=== PATIENT | female | born 1970 | race Caucasian/White ===

== ENCOUNTER 2020-11-10 15:29 | Outpatient (CLI) | payer OTHER, BC, SELFPAY ==
--- NOTE | ~2020-11-10 | XR_ITS ---
XR sacrum coccyx min 2V DATE: 11/10/2020 16:00 INDICATION: Coccygeal pain for 4 months. No known injury. TECHNIQUE: AP, angled AP and lateral views of the sacrum and coccyx COMPARISON: None FINDINGS: No fracture or dislocation or bone destruction of the sacrum or coccyx. Normal alignment at the sacroiliac joints and pubic symphysis. IMPRESSION: Negative Reviewed, dictated and finalized at location A. IMPRESSION: Negative
== END 2020-11-10 15:30 | disposition home or self-care (01) ==
PROVIDERS: PCP Family Medicine; Visit Provider Family Medicine
DX: M53.3 Sacrococcygeal disorders, not elsewhere classified (principal)
CPT/HCPCS: 72220

== ENCOUNTER 2020-11-20 15:04 | Outpatient (RCR) | payer OTHER, BC, SELFPAY ==
--- NOTE | 2020-11-20 15:43 | PTOPEVAL ---
Thank you for referring Patricia Gil to [facility].? The patient is scheduled to be seen for therapy? ____x/week for ___ weeks. Please review, sign, date and return this plan of care ROGERS. I agree with and certify that the following plan of care is medically necessary. Referring Physician Date Admitting Provider: Attending Provider: Dennis Gonzalez, MD Referring Provider: *PT Outpatient Evaluation Start: 11/20/20 14:49 Freq: Status: Active Protocol: Document 11/20/20 14:50 ACR (Rec: 11/20/20 15:43 ACR [id number]) Therapy Assessment Status Assessment Status Assessment Status Evaluation Evaluation Information Problem Diagnosis Low back pain Onset 11/11/20 Subjective Information Patient states that she is Query Text:As Reported By Patient/ unsure what caused her pain. Family The patient states that sitting causes her a lot of pain and drives about an hour to work. She states she is has a lot of difficulty getting in and out of the car. Patient states that she occasionally has pain when she sits down. She states lifting her legs cause issues. Patient states the pain started a few months ago and it is getting worse. Some days are better than others, but when she has a bad day walking, stairs, standing , and sitting are all difficult. Patient states that her goal for therapy is to get in and out of the car easily and be able to sit without leaning one way or the other. 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
--- NOTE | 2020-12-25 14:43 | PTOPEVAL ---
Thank you for referring Patricia Gil to [facility].? The patient is scheduled to be seen for therapy? ____x/week for ___ weeks. Please review, sign, date and return this plan of care ROGERS. I agree with and certify that the following plan of care is medically necessary. Referring Physician Date Admitting Provider: Attending Provider: Dennis Gonzalez, MD Referring Provider: *PT Outpatient Evaluation Start: 11/20/20 14:49 Freq: Status: Active Protocol: Document 12/25/20 13:48 ACR (Rec: 12/25/20 14:43 ACR [id number]) Therapy Assessment Status Assessment Status Assessment Status Discharge Evaluation Information Problem Diagnosis LBP Onset 11/11/20 Subjective Information Patient states that since Query Text:As Reported By Patient/ beginning therapy she is feel Family great. She no longer has difficulty gettiing in and out of her car, sitting for a period of time, lifting her legs, walking, stairs, and standing. She states she would like to be discharged and she does her HEP daily. Pain Assessment Timing of Pain Assessment Timing of Pain Assessment Assessment Pain Scale Pain Scale Used Numeric (1 - 10) Self Report Pain Assessment Lower Back Reported Pain Level 0 Greatest Pain Intensity 0 Pain Score Pain Score 0: Self Report Lower Extremity Muscle Strength Testing Hip Strength Right Hip Flexion Strength 5 Normal Left Hip Flexion Strength 5 Normal Knee Strength Right Knee Flexion Strength 5 Normal Knee Extension Strength 5 Normal Left Knee Flexion Strength 5 Normal Knee Extension Strength 5 Normal Muscle Length Testing Muscle Length Testing Piriformis w/Hip Flexion <90 Degrees (R) WFL,(L) WFL Left Hamstring Length 10 Query Text:(90 - 90 Position) Right Hamstring Length 10 Query Text:(90 - 90 Position) General Exercise General Exercises Exercise Description - review over Les's Rudy Query Text:Record Sets, Reps, x 30 minutes Resistance, and Position - ambulation x 10 minutes ( 2500') - nustep level 5, 10 minutes - passive stretching of B hamstrings x 5 minutes PT Clinical Summary Clinical Summary Protocol: PTEVCODE PT Clinical Summary Patient is a 50 year old female that has participated 9 visits f
== END 2020-12-25 14:57 | disposition home or self-care (01) ==
LOC: CHSPT 15:04
PROVIDERS: Visit Provider Family Medicine
DX: M53.3 Sacrococcygeal disorders, not elsewhere classified (principal)
CPT/HCPCS: 97014; 97110; 97140; 97161; 97530; G0283

== ENCOUNTER 2022-08-24 09:02 | Observation (INO) | payer OTHER, BC, SELFPAY ==
[2022-08-24] VITALS (9 sets, daily range): BP systolic 117–140; BP diastolic 72–88; PULSE 87–105; RESP 13–19; TEMP 37–37.1; O2SAT 91–99; BMI 29.1
--- NOTE | ~2022-08-24 | CT_ITS ---
EXAMINATION: CT abdomen pelvis wo con DATE: 08/24/2022 09:52 INDICATION: Low abdominal pain. TECHNIQUE: Computed tomography (CT) of the abdomen and pelvis was performed without intravenous contr ast. Automated exposure control and iterative reconstruction technique were employed. The dose-length product was 521.21 mGy-cm. COMPARISON: None. FINDINGS: The visualized portions of the lung bases demonstrate mild atelectasis. There is a 5 mm par t solid nodule in right lower lobe, likely benign. No pleural effusion. The heart size is normal. No pericardial effusion. The liver and gallbladder are normal. There is a 15 mm low-attenuation lesion i n the spleen, most likely a cyst or granulomatous disease. The pancreas, adrenal glands, and kidneys are normal. There is no urolithiasis. There are scattered diverticula in the colon. There is fat stra nding around a diverticulum of the sigmoid colon with local bowel wall thickening and punctate foci o f extraluminal gas, consistent with diverticulitis. There are no dilated loops of bowel. The appendix is normal. There is an umbilical hernia containing fat. There are no pathologically enlarged lymph n odes. There is no free intraperitoneal fluid. There is mild thoracic and lumbar spondylosis. IMPRESSION: 1. Acute sigmoid diverticulitis with microperforation. No abscess. Reviewed, dictated and finalized at location A.
[2022-08-24] MEDS: LACTATED RINGERS 1,000 ML 999 ML IV CONT (09:45)
[2022-08-24 09:52] LABS: Basophils Percent Auto 0.2 % (0.2-1.2); Eosinophils Percent Auto 0.3 % (0-4.4); Hemoglobin 13.5 g/dL (12.0-15.0); Immature Granulocyte Absolute 0.03 K/mm3 (0.00-0.031); Immature Granulocyte Percent A 0.2 % (0-0.5); Lymphocytes Absolute Auto 1.26 K/mm3 (0.9-3.2); Lymphocytes Percent Auto 9.4 % (18.3-44.2); Mean Corpuscular HGB Conc 33.8 g/dl (32-36); Mean Corpuscular Hemoglobin 31.9 pg (26-34); Mean Corpuscular Volume 94.6 fl (80-100); Monocytes Absolute Auto 0.9 K/mm3 (0.1-0.6); Monocytes Percent Auto 6.6 % (2.6-8.5); Neutrophils Absolute Auto 11.1 K/mm3 (1.3-6.7); Neutrophils Percent Auto 83.3 % (45.5-73.1); Platelet Count Result 310 k/mm3 (150-375); Red Blood Count 4.23 M/mm3 (4.2-5.4); White Blood Count 13.4 K/mm3 (4.5-10.0)
[2022-08-24 09:57] LABS: Alanine Aminotransferase 22 U/L (6-35); Albumin Level 4.5 g/dL (3.5-5.1); Alkaline Phosphatase 120 U/L (38-126); Anion Gap 8 mmol/L (8-16); Aspartate Amino Transferase 23 U/L (14-36); Blood Urea Nitrogen 11 mg/dL (7-17); Calcium 9.6 mg/dL (8.4-10.2); Carbon Dioxide 25 mmol/L (22-30); Chloride 106 mmol/L (98-107); Estimated CRCL calculation 88 ml/min; Estimated Glomerular Filt Rate > 60; Glucose 116 mg/dL (65-110); Lipase 32 U/L (23-300); Sodium 139 mmol/L (137-145)
[2022-08-24] MEDS: PIPERACILLN/TAZ 3.375GM/NS50ML 3.375 GM/50 ML BAG IVPB ×3 (10:36→22:42)
[2022-08-24 10:58] LABS: Appearance Urine Cloudy (Clear); Bacteria Urine Rare /hpf; Bilirubin Urine Negative (Negative); Blood Urine Negative (Negative); Color Urine Yellow (Yellow); Glucose Urine UA Negative (Negative); Ketones Urine Negative (Negative); Leukocyte Esterase Ur 1+ LEU/UL (Negative); Nitrate Urine Negative (Negative); Non Pathogenic Casts 0-2; Protein Urine Negative (Negative); RBC Urine 0-2 /hpf (0-2); Specific Grav Ur 1.009 (1.001-1.035); Squamous Epithelial Cell Urine Few /hpf (Few); Urobilinogen Urine 0.2 mg/dL (<2.0)
[2022-08-24 11:12] LABS: Add Urine Microscopic? YES
--- NOTE | 2022-08-24 11:14 | ED.ABDPAIN ---
HPI - Abdominal Pain General Chief Complaint: Abdominal Pain Stated Complaint: lower abdominal pain with diarrhea Time Seen by Provider: 08/24/22 09:10 History of Present Illness HPI narrative: Patient states that since last night, she has been having waves of pain in her lower abdomen, along with some nausea and diarrhea. Endorses some chills, she is concerned that she may have diverticulitis, no prior history of this but she has multiple family members with it. No dysuria. Related Data Allergies Allergy/AdvReac Type Severity Reaction Status Date / Time iohexol Allergy Hives Verified 08/24/22 09:03 [From contrast - CT, X-RAY] prednisone Allergy Nausea and Verified 08/24/22 09:04 Vomiting Sulfa (Sulfonamide Allergy Nausea Verified 08/24/22 09:03 Antibiotics) Review of Systems Review of Systems: CONST: No fever. HEENT: No sore throat C/V: No chest pain RESP: No cough GI: Reports abdominal pain, nausea, diarrhea : No dysuria. M/S: No joint pain. SKIN: No rash. NEURO: [No headache or focal numbness or weakness] PSYCH: [No depression] Exam Narrative: EXAMINATION OF ORGAN SYSTEMS/BODY AREAS: Constitutional: Vital signs per nursing GENERAL:[No acute distress, non-toxic appearing.] HEAD: Normal with no signs of head trauma. EYES: EOMI, conjunctiva normal ENT: Hearing grossly intact LUNGS: Nonlabored breathing. HEART: [Regular rate and rhythm] ABD: [Soft], some tenderness palpation to the lower abdomen EXT: Normal range of motion SKIN: [No rashes or lesions.] NEURO: [Alert and oriented x 3. No gross focal sensory or strength deficits.] PSYCH: Normal affect Course Vital Signs Vital signs: Vital Signs Temperature 98.7 F 08/24/22 09:04 Pulse Rate 101 H 08/24/22 09:04 Respiratory Rate 14 08/24/22 09:04 Blood Pressure 127/75 08/24/22 09:04 Pulse Oximetry 97 08/24/22 09:04 Oxygen Delivery Room Air 08/24/22 09:04 Temperature 98.7 F 08/24/22 09:04 Pulse Rate 92 08/24/22 10:15 Respiratory Rate 18 08/24/22 10:15 Blood Pressure 140/88 08/24/22 10:15 Pulse Oximetry 97 08/24/22 10:15 Oxygen Delivery Room Air 08/24/22 09:04 MDM - Abdominal Pain MDM Narrative Medical decision making narrative: Electronic medical record was reviewed. Patient presented to the ED with complaint of [abdominal pain and diarrhea]. Vitals [were within acceptable limits]. Physical exam revealed lower abdominal tenderness. Based on the patient's history and physical exam, my differential includes but is not limited to [gastritis, gastroenteritis, diverticulitis, appendicitis]. [IV access was established by nursing staff]. Patient declines any pain medication at this time. CBC, BMP, lipase, LFTs, bilirubin and alk phos were obtained. Labs were pertinent for leukocytosis to 13.4. UA with 6-10 WBCs and some leukocyte esterase. [Decision was made to obtain a CT-abdomen to evaluate for acute abdominal process. CT-abdomen per radiology interpretation is significant for diverticulitis with microperforation.] I did start the patient on Zosyn at this time, along with IV fluids and made her n.p.o. I did discuss this case with the general surgeon, who agrees to admit the patient under his service. Findings discussed with the patient and plan for admission and she is agreeable with this. Lab Data 08/24/22 09:38 08/24/22 09:38 Labs: Lab Results 08/24/22 08/24/22 Range/Units 09:38 10:49 WBC 13.4 H (4.5-10.0) K/mm3 RBC 4.23 (4.2-5.4) M/mm3 Hgb 13.5 (12.0-15.0) g/dL Hct 40.0 (37.0-47.0) % MCV 94.6 (80-100) fl MCH 31.9 (26-34) pg MCHC 33.8 (32-36) g/dl RDW 12.0 (11.5-14.5) % Plt Count 310 (150-375) k/mm3 MPV 11.0 H (7.4-10.4) fl Immature Gran % (Auto) 0.2 (0-0.5) % Neut % (Auto) 83.3 H (45.5-73.1) % Lymph % (Auto) 9.4 L (18.3-44.2) % [place] % (Auto) 6.6 (2.6-8.5) % Eos % (Auto) 0.3 (0-4.4)
--- NOTE | 2022-08-24 12:01 | PM.IMHP ---
H&P: HPI History of Present Illness Date/Time: 08/24/22 12:01 Chief Complaint: Lower abdominal pain Narrative: This is a 52-year-old woman who presented to the ER today with complaints of mid lower abdominal pain x 3 days. She began having some mid lower abdominal pain on Monday that was initially mild. The pain was aggravated by movement/bending and when she would move her bowels. She does report over the weekend having some hard small stools. Her abdominal pain was constant and progressively became worse. She denies any nausea, vomiting, fever, or chills. Yesterday, she began to notice loose mucous-like stools and her pain became much more severe overnight. She decided to come into the ER today for evaluation due to her worsening pain overnight. In the ER, her labs were significant for a WBC count of 13,400. CT scan of the abdomen and pelvis showed acute sigmoid diverticulitis with microperforation, no abscess. She is being admitted to our service in this setting. She is seen in the ER and has been started on IV Zosyn and IV fluids. She has not required any pain medication in the ER and states her abdominal pain is actually better this morning compared to the pain she was having at home last night. No other complaints at this time. Denies a history of diverticulitis. Reports having a colonoscopy in [place] 3 years ago that was normal. No previous abdominal surgeries. Review of Systems Review of Systems: All systems reviewed & are unremarkable except as noted in HPI and below Constitutional: Constitutional: Reports no additional constitutional complaints, Denies chills, Denies fatigue and Denies fever(s) Eyes: Eyes: Reports no additional eye complaints ENT: Reports system reviewed and no additional complaints, except as documented and Denies dizziness Cardiovascular: Cardiovascular: Reports no additional cardiovascular complaints, Denies chest pain and Denies leg edema Respiratory: Respiratory: Reports no additional respiratory complaints, Denies cough and Denies dyspnea Gastrointestinal: Gastrointestinal: Reports as per HPI, Reports no additional gastrointestinal complaints, Reports abdominal pain, Denies melena, Denies hematochezia, Reports change in stool character, Reports loose stools, Denies nausea and Denies vomiting Genitourinary: Genitourinary: Reports no additional female genitourinary complaints and Denies dysuria Musculoskeletal: Musculoskeletal: Reports no additional musculoskeletal complaints, Denies abnormal gait and Denies joint swelling Integumentary/Breasts: Skin/Breast: Reports system reviewed and no additional complaints, except as docu Neurologic: Reports system reviewed and no additional complaints, except as documented, Denies headache(s), Denies focal weakness, Denies numbness and Denies tingling PMFSH Past Medical History Medical History Vitamin D deficiency Surgical History Surgical History History of colonoscopy History of lumpectomy of left breast Benign History of tonsillectomy Family History Family History Mother Diverticulitis Social History Social History Smoking status: Never smoker Drinks per week: 2 Substance use: never Lack of Transportation: No Lack of Food: Sometimes True Current Housing: I Have Housing Concerned About Future Housing: No Difficulty Paying Gas/Electric Bills: No Difficulty Paying for Meds: No Currently Unemployed: No Education: Associate Degree Difficulty w/ Childcare or Family Care: No Spiritual care concerns: No Meds Home Medications and Allergies Allergies Allergy/AdvReac Type Severity Reaction Status Date / Time iohexol Allergy Hives Verified 08/24/22 09:03 [From contrast - CT, X-RAY] prednisone Allerg
--- NOTE | 2022-08-24 12:07 | ADMGEN ---
This patient, Patricia Gil, was admitted to Medical Room 251-01. Patient/family oriented to hospital policies and general routines including ID bracelet, bed and alarms, visiting hours, pain management, procedures, bathroom and other care routines, personal items, smoking policy, room service/diet, and visiting hours. Information on how to activate the Rapid Response Team has been discussed. Patient/Family are encouraged to report perceived risks to care and to ask questions if they do not understand what they are told or what they should do.
[2022-08-24] MEDS: SODIUM CHLORIDE 0.9% IV 1,000 ML 125 ML IV CONT ×2 (13:44→22:42)
[2022-08-25] MEDS: PIPERACILLN/TAZ 3.375GM/NS50ML 3.375 GM/50 ML BAG IVPB ×4 (04:11→23:20)
[2022-08-25 05:06] VITALS: BP 119/72; PULSE 77; RESP 14; TEMP 36.6; O2SAT 98
[2022-08-25 05:58] LABS: Basophils Percent Auto 0.3 % (0.2-1.2); Eosinophils Absolute Auto 0.1 K/mm3 (0-0.3); Eosinophils Percent Auto 1.2 % (0-4.4); Hematocrit 35.9 % (37.0-47.0); Hemoglobin 11.8 g/dL (12.0-15.0); Immature Granulocyte Absolute 0.02 K/mm3 (0.00-0.031); Immature Granulocyte Percent A 0.2 % (0-0.5); Lymphocytes Absolute Auto 1.61 K/mm3 (0.9-3.2); Lymphocytes Percent Auto 17.8 % (18.3-44.2); Mean Corpuscular HGB Conc 32.9 g/dl (32-36); Mean Corpuscular Volume 97.3 fl (80-100); Mean Platelet Volume 10.6 fl (7.4-10.4); Monocytes Absolute Auto 0.7 K/mm3 (0.1-0.6); Monocytes Percent Auto 7.3 % (2.6-8.5); Neutrophils Absolute Auto 6.6 K/mm3 (1.3-6.7); Neutrophils Percent Auto 73.2 % (45.5-73.1); Platelet Count Result 247 k/mm3 (150-375); Red Blood Count 3.69 M/mm3 (4.2-5.4); Red Cell Distribution Width 12.1 % (11.5-14.5); White Blood Count 9.1 K/mm3 (4.5-10.0)
[2022-08-25 06:13] LABS: Anion Gap 4 mmol/L (8-16); Blood Urea Nitrogen 9 mg/dL (7-17); Calcium 8.8 mg/dL (8.4-10.2); Carbon Dioxide 28 mmol/L (22-30); Chloride 109 mmol/L (98-107); Estimated CRCL calculation 79 ml/min; Estimated Glomerular Filt Rate > 60; Glucose 93 mg/dL (65-110); Potassium 3.5 mmol/L (3.4-5.0); Sodium 141 mmol/L (137-145)
[2022-08-25 08:23] VITALS: PULSE 75; O2SAT 95
[2022-08-25] MEDS: PANTOPRAZOLE SODIUM IV 40 MG VIAL IV PUSH (08:51)
[2022-08-25] MEDS: SODIUM CHLORIDE 0.9% IV 1,000 ML 125 ML IV CONT (09:00)
--- NOTE | 2022-08-25 10:59 | PM.PNGS ---
Progress Note: A&P Assessment and Plan (1) Diverticulitis of intestine with perforation without abscess: Qualifiers: Diverticulitis site: large intestine Diverticulitis bleeding: unspecified bleeding status Qualified Code(s): K57.20 - Diverticulitis of large intestine with perforation and abscess without bleeding Code(s): K57.80 - Diverticulitis of intestine, part unspecified, with perforation and abscess without bleeding Status: Acute Assessment and Plan: Abdominal pain and tenderness improved. WBC down to normal. Will start clear liquids and advance to fulls later today if doing well. Consult the dietitian for education on low vs high fiber diet. Continue IV Zosyn. Will repeat labs tomorrow. Plan I have discussed the patient's case and plan of care with Dr. Sandhu. Subjective Subjective Date/Time Seen: 08/25/22 10:19 Patient reports: feels better, pain is less, flatus, bowel movement and afebrile Review of Systems Review of Systems: All systems reviewed & are unremarkable except as noted in HPI and below Constitutional: Constitutional: Reports no additional constitutional complaints, Denies fever(s), Denies poor appetite and Denies weakness Gastrointestinal: Gastrointestinal: Reports no additional gastrointestinal complaints, Denies constipation, Denies diarrhea, Reports loose stools (loose BM this morning, small), Denies nausea and Denies vomiting Exam Const: General: comfortable and no acute distress Orientation/consciousness: patient oriented x3 Resp: Effort & Inspection: no respiratory distress Auscultation: clear to auscultation bilaterally Cardio: Rate: regular rate Rhythm: regular rhythm GI: Inspection: non-distended GI Palp: Yes Soft to palpation, Yes Tenderness to palpation present (GI) (improved tenderness in the mid to left lower abdomen), No Guarding due to palpation present (GI) and No Rebound tenderness present Auscultation: normal bowel sounds Extrem: General: no edema Psych: Mental Status: mental status grossly normal Insight: Good insight present (Psych) Objective Data Vital Signs Vital Signs: Vital Signs - 24 hr 08/24/22 11:30 08/24/22 12:13 08/24/22 19:37 Temperature 98.6 F 98.6 F Pulse Rate 88 92 91 Respiratory Rate 15 16 14 Blood Pressure 128/79 137/79 136/74 Pulse Oximetry 99 99 97 Oxygen Delivery 08/24/22 20:00 08/25/22 05:06 08/25/22 08:23 Temperature 97.8 F Pulse Rate 77 75 Respiratory Rate 14 Blood Pressure 119/72 Pulse Oximetry 98 95 Oxygen Delivery Room Air Room Air 08/25/22 08:00 Temperature Pulse Rate Respiratory Rate Blood Pressure Pulse Oximetry Oxygen Delivery Room Air Intake/Output Intake/Output: Intake & Output 08/22/22 08/23/22 08/24/22 08/25/22 23:59 23:59 23:59 23:59 Intake Total 2360 1170 Balance 2360 1170 Meds/Results Medications: Active Medications Generic Name Dose Route Start Last Admin Trade Name Freq PRN Reason Stop Dose Admin Piperacillin/Tazobactam/Dextrose 3.375 gm in 50 mls @ 100 mls/hr 08/24/22 17:00 08/25/22 10:33 Zosyn 3.375 Gm/Ns 50 Ml IVPB 100 mls/hr Q6H CARMELITA Administration Sodium Chloride 1,000 mls @ 125 mls/hr 08/24/22 13:20 08/25/22 09:00 Normal Saline Iv IV CONT 125 mls/hr .Q8H CARMELITA Administration Acetaminophen 1,000 mg in 100 mls @ 400 mls/hr 08/24/22 13:17 08/25/22 04:28 Ofirmev 1,000 Mg Ivpb IVPB 08/25/22 13:16 Infused Q6H PRN Infusion Pain Rated 4-6 Morphine Sulfate 2 mg 08/24/22 13:17 Morphine Sulfate (*Crx) 2 Mg/Ml Inj IV PUSH Q2H PRN Pain Rated 7-10 Ondansetron HCl 4 mg 08/24/22 10:39 Ondansetron Inj 4 Mg/2 Ml Vial IV PUSH Q4H PRN Nausea Pantoprazole Sodium 40 mg 08/25/22 09:00 08/25/22 08:51 Pantoprazole Sodium Iv 40 Mg Vial IV PUSH 40 mg QAM CARMELITA Administration Radiology Results: ITS Impressions Abdomen/Pelvis CT 08/24/22 09:56 IMPRESSION: 1. Acute si
[2022-08-25 14:00] VITALS: BP 129/71; PULSE 67; RESP 15; TEMP 36.7; O2SAT 99
[2022-08-25 20:20] VITALS: BP 111/74; PULSE 73; RESP 16; TEMP 36.6; O2SAT 98
[2022-08-25] MEDS: ACETAMINOPHEN 325 MG TABLET 650 MG PO (23:19)
[2022-08-26 04:52] VITALS: BP 128/76; PULSE 72; RESP 14; TEMP 36.7; O2SAT 97
[2022-08-26] MEDS: PIPERACILLN/TAZ 3.375GM/NS50ML 3.375 GM/50 ML BAG IVPB (05:24)
[2022-08-26 06:07] LABS: Hematocrit 35.7 % (37.0-47.0); Hemoglobin 11.8 g/dL (12.0-15.0); Mean Corpuscular HGB Conc 33.1 g/dl (32-36); Mean Corpuscular Hemoglobin 31.8 pg (26-34); Mean Corpuscular Volume 96.2 fl (80-100); Mean Platelet Volume 10.4 fl (7.4-10.4); Platelet Count Result 269 k/mm3 (150-375); Red Blood Count 3.71 M/mm3 (4.2-5.4); Red Cell Distribution Width 11.9 % (11.5-14.5)
[2022-08-26 06:20] LABS: Anion Gap 4 mmol/L (8-16); Blood Urea Nitrogen 8 mg/dL (7-17); Calcium 9.3 mg/dL (8.4-10.2); Carbon Dioxide 29 mmol/L (22-30); Chloride 108 mmol/L (98-107); Estimated CRCL calculation 79 ml/min; Estimated Glomerular Filt Rate > 60; Glucose 95 mg/dL (65-110); Potassium 3.7 mmol/L (3.4-5.0); Sodium 141 mmol/L (137-145)
[2022-08-26] MEDS: PANTOPRAZOLE SODIUM IV 40 MG VIAL IV PUSH (09:13)
[2022-08-26 14:00] VITALS: BP 117/71; PULSE 78; RESP 18; TEMP 36.7; O2SAT 99
--- NOTE | 2022-08-26 14:26 | PCDIET ---
Brief nutrition note: Pt asked for clarification on nutrition education from yesterday. Wanted to know if she can take vitamins whole. Told her probably fine but check with doctor if any questions. Chrissy Cao RD LDN
--- NOTE | 2022-08-26 14:56 | PM.DS ---
DS: Admitting Diagnosis Discharge Date August 26, 2022 Admitting Diagnosis Acute sigmoid diverticulitis with micro perforation DS: Discharge Diagnosis Discharge Diagnosis (1) Diverticulitis of intestine with perforation without abscess: Qualifiers: Diverticulitis site: large intestine Diverticulitis bleeding: unspecified bleeding status Qualified Code(s): K57.20 - Diverticulitis of large intestine with perforation and abscess without bleeding Code(s): K57.80 - Diverticulitis of intestine, part unspecified, with perforation and abscess without bleeding Status: Acute DS: Summary Hospital Course Hospital Course: the patient experienced severe left lower quadrant abdominal pain lasting about 24hours. She presented to the emergency room where she had a mildly elevated white blood count [address]160. CT scan abdomen pelvis showed evidence of a mild sigmoid diverticulitis with small microperforation. No periappendiceal abscess was seen. She had not had previous episodes of diverticulitis status colonoscopy about 3 years ago which was normal. She was admitted to the hospital and started on IV antibiotics include Zosyn. Pain quickly improved and she was then started on clear liquids. Was then advanced to full liquids later today and then to a low-fiber diet the next day. Abdominal exam was relatively benign. Only needed Tylenol for any pain relief. On the day of discharge she had only minimal 1/10 pain upon palpation of the left lower quadrant. her white blood count was normal and she had been afebrile for over 24hours. She was tolerating a low-fiber diet she was discharged home on hospital day 2. She is to continue on a course of oral antibiotics at home for the next 10 days. She is to follow up to see me in the office in about 2 weeks. Status at Discharge Functional status at discharge: independent ambulation Overall status at discharge: patient is back to baseline Time Spent with Patient Time attestation: Total time spent providing and/or coordinating discharge services: Time spent: Less than 30 minutes Exam Const: General: comfortable and no acute distress Neck: Neck: supple and no JVD Resp: Effort & Inspection: normal respiratory effort Auscultation: clear to auscultation bilaterally Cardio: Rate: regular rate Rhythm: regular rhythm GI: Other: Abdomen is soft and nondistended. Minimal tenderness to deep palpation in the left lower quadrant. No guarding or rebound tenderness is noted. Neuro: General: gait normal Motor exam (neuro): 5/5 motor strength present throughout Sensory Exam: normal sensation Psych: Mental Status: mental status grossly normal Affect: normal affect DS: Data Data Completed and Pending Labs on day of discharge: Labs from last 24 hours 08/26/22 06:01 WBC 9.0 RBC 3.71 L Hgb 11.8 L Hct 35.7 L MCV 96.2 MCH 31.8 MCHC 33.1 RDW 11.9 Plt Count 269 MPV 10.4 Sodium 141 Potassium 3.7 Chloride 108 H Carbon Dioxide 29 Anion Gap 4 L BUN 8 Creatinine 0.80 Estim Creat Clear Calc 79 Estimated GFR > 60 Glucose 95 Calcium 9.3 Discharge Plan Discharge Attending physician on discharge: Mitchel Sandhu Discharging Clinician: Mitchel Sandhu Anticipated Discharge Date/Time: 08/26/22 14:53 Patient Disposition: Home, Self-Care Activity: unlimited Diet: low fiber Discharge Instructions: May discharge home when stable. Follow up to see Dr. Sandhu the office in 2 weeks. Patient to call [phone] for an appointment. Stay on a low-fat diet for 2 weeks and then switch to a high-fiber diet. No activity restrictions and may return to work when she feels like it. Patient Instructions: Antibiotic Form Stand Alone Forms: General Discharge Information Follow-up/Referrals: Mitchel Sandhu MD [Physician] - Discharge Medications: New amoxicillin-pot clavulanate [Augmentin] 500-125 mg tablet 1 tablet PO Q8H Qty: 3
== END 2022-08-26 15:48 | disposition home or self-care (01) ==
LOC: ANHED 11:38 → ANH2MED 11:42
PROVIDERS: Nurse Practitioner Family; Admitting Provider Surgery; Emergency Provider Emergency Medicine; PCP Family Medicine; Visit Provider Surgery
DX: K57.20 Diverticulitis of large intestine with perforation and abscess without bleeding (principal); D72.829 Elevated white blood cell count, unspecified; E55.9 Vitamin D deficiency, unspecified
CPT/HCPCS: 36415; 74176; 80048; 80053; 81001; 83690; 85025; 85027; 87086; 96361; 96365; 96367; 96375; 96376; 99285; A9270; C9113; G0378; J0131; J2543; J7030; J7120

== ENCOUNTER 2022-11-07 11:19 | Day surgery (SDC) | payer OTHER, BC, SELFPAY ==
[2022-10-10 09:02] VITALS: BMI 28.4
[2022-10-21 11:27] VITALS: BMI 27.6
--- NOTE | 2022-11-04 15:05 | WPDANESEPPF ---
Anes - Initial Pre Proc Eval Procedure: Operation Date: 11/07/22 13:30 Proposed Procedures p Esophagogastroduodenoscopy - Golden Lambert MD s Diagnostic Colonoscopy - Golden Lambert MD Date/Time: 11/04/22 15:05 Surgeon: Golden Lambert MD Pre Op Diagnosis: Diverticulitis w/Perforation & ABS., Epigastric PN Patient Data Age: 52 Gender: F Height: 1.7 m Weight: 80 kg Allergies Allergy/AdvReac Type Severity Reaction Status Date / Time iohexol Allergy Hives Verified 11/07/22 12:30 [From contrast - CT, X-RAY] prednisone Allergy Nausea and Verified 11/07/22 12:30 Vomiting Sulfa (Sulfonamide Allergy Nausea Verified 11/07/22 12:30 Antibiotics) Home Medications Medication Instructions Recorded Confirmed Type cholecalciferol (vitamin D3) 10 10 mcg PO DAILY 09/14/22 11/07/22 History mcg (400 unit) capsule omega-3 fatty acids 1,000 mg 1,000 mg PO DAILY 09/14/22 11/07/22 History capsule lactobacillus combination no.9 4 4,000 mmu cells PO DAILY 10/04/22 11/07/22 History billion cell capsule (Adult 50 Plus Probiotic) Patient hx anesthesia problems: none Family hx anesthesia problems: none Results Review: All pre-operative results and documents have been reviewed as part of the pre-operative evaluation. [facility] Past Medical History Medical History (Updated 11/04/22 @ 15:06 by Jonathan Woodson MD) Diverticulitis Overweight (BMI 25.0-29.9) Vitamin D deficiency Surgical History Surgical History History of colonoscopy History of lumpectomy of left breast Benign History of tonsillectomy Family History Family History Mother Diverticulitis Social History Social History Smoking status: Never smoker Alcohol intake: never Drinks per week: 2 Substance use: never Substance use type: does not use Lack of Transportation: No Lack of Food: Sometimes True Current Housing: I Have Housing Concerned About Future Housing: No Difficulty Paying Gas/Electric Bills: No Difficulty Paying for Meds: No Currently Unemployed: No Education: Associate Degree Difficulty w/ Childcare or Family Care: No Living arrangements: with family Spiritual care concerns: No Anes - Eval Final PreProcedure Day of Procedure 11/04/22 15:05 Patient weight: overweight Heart: regular rate and rhythm Lungs: clear to auscultation and normal air movement Airway: Mallampati scale class II Neurological: alert and oriented Last oral intake: >/= 8 hours ASA classification: II Emergent: no Anesthetic plan: proceed Anesthesia type and monitoring: general GIVS Results Review: All pre-operative results and documents have been reviewed as part of the pre-operative evaluation. Informed Consent: The patient's anesthetic plan and its attendant risks and benefits were discussed with the patient/family/POA. Questions were solicited and answers provided to the satisfaction of the patient/family/POA.
[2022-11-07 12:39] VITALS: BP 127/81; PULSE 74; RESP 16; TEMP 36.8; O2SAT 98
[2022-11-07] MEDS: LACTATED RINGERS 1,000 ML 150 ML IV CONT (12:51)
--- NOTE | 2022-11-07 12:55 | PM.HPGS ---
History of Present Illness History of Present Illness Consent: Risks, benefits, and alternatives have been discussed and questions answered. Patient agrees to proceed with procedure. Chief complaint: Diverticulitis , Epigastric pain Narrative: Patricia Gil is a 52 year old female presents for both colonoscopy and EGD. Patient states she was hospitalized with diverticulitis 2 months ago. Treated with antibiotics. She no longer has discomfort. Her bowel habits have returned to normal. She presents for colonoscopy to ensure resolution of her diverticulitis. Additionally patient notes that after her diverticulitis episode she developed substernal warm sensation with the eating. She is referred for EGD to evaluate this. She has not tried antacids nor any specific therapy for this. She denies any dysphagia. She has had no weight loss. Review of Systems Review of Systems: Review of systems noncontributory. [facility] Past Medical History Medical History (Updated 11/07/22 @ 12:57 by Golden Lambert MD) Diverticulitis Overweight (BMI 25.0-29.9) Vitamin D deficiency Surgical History Surgical History History of colonoscopy History of lumpectomy of left breast Benign History of tonsillectomy Family History Family History Mother Diverticulitis Social History Social History Smoking status: Never smoker Alcohol intake: never Drinks per week: 2 Substance use: never Substance use type: does not use Lack of Transportation: No Lack of Food: Sometimes True Current Housing: I Have Housing Concerned About Future Housing: No Difficulty Paying Gas/Electric Bills: No Difficulty Paying for Meds: No Currently Unemployed: No Education: Associate Degree Difficulty w/ Childcare or Family Care: No Living arrangements: with family Spiritual care concerns: No Meds Home Medications and Allergies Home Medications Medication Instructions Recorded Confirmed Type cholecalciferol (vitamin D3) 10 10 mcg PO DAILY 09/14/22 11/07/22 History mcg (400 unit) capsule omega-3 fatty acids 1,000 mg 1,000 mg PO DAILY 09/14/22 11/07/22 History capsule lactobacillus combination no.9 4 4,000 mmu cells PO DAILY 10/04/22 11/07/22 History billion cell capsule (Adult 50 Plus Probiotic) Allergies Allergy/AdvReac Type Severity Reaction Status Date / Time iohexol Allergy Hives Verified 11/07/22 12:30 [From contrast - CT, X-RAY] prednisone Allergy Nausea and Verified 11/07/22 12:30 Vomiting Sulfa (Sulfonamide Allergy Nausea Verified 11/07/22 12:30 Antibiotics) Vital Signs Vital Signs - 24 hr 11/07/22 12:39 Temperature 98.2 F Pulse Rate 74 Respiratory Rate 16 Blood Pressure 127/81 Pulse Oximetry 98 Oxygen Delivery Room Air Exam Narrative: Physical exam reveals patient to be alert. Vital signs stable. HEENT exam is unremarkable. Patient is anicteric. Lungs are clear. Heart without murmur. Abdomen bowel sounds present soft nontender with no organomegaly. Digital external rectal exam is normal. Assessment and Plan Assessment and plan (1) Diverticulitis of intestine with perforation without abscess: Qualifiers: Diverticulitis site: large intestine Diverticulitis bleeding: unspecified bleeding status Qualified Code(s): K57.20 - Diverticulitis of large intestine with perforation and abscess without bleeding Code(s): K57.80 - Diverticulitis of intestine, part unspecified, with perforation and abscess without bleeding Status: Acute Assessment and Plan: The patient has a history of diverticulitis 8 weeks ago which she states symptoms have improved. She did receive a course of antibiotics. Plan for patient to start a high-fiber fiber diet. Colono
[2022-11-07 14:10] VITALS: BP 109/73; PULSE 79; RESP 16; O2SAT 97
[2022-11-07 14:20] VITALS: BP 117/82; PULSE 65; RESP 16; O2SAT 100
--- NOTE | 2022-11-07 14:23 | WPDANESPN ---
Anes - Prog Note Post-Op Date/Time: 11/07/22 14:23 Cardiovascular status: normal Respiratory status: normal Airway patency: baseline Mental status: baseline Post-Op hydration status: normal Vital Signs: Last Vital Signs Temp 36.8 C 11/07/22 12:39 Pulse 79 11/07/22 14:10 Resp 16 11/07/22 14:10 BP 109/73 11/07/22 14:10 Pulse Ox 97 11/07/22 14:10 O2 Del Method Room Air 11/07/22 14:10 Pain Score (VAS): 0 I/O: Intake & Output 11/06/22 11/07/22 11/07/22 23:59 07:59 15:59 Intake Total 500 Balance 500 Post-procedural complaints: none Patient Feedback: Patient satisfied with anesthetic care.
[2022-11-07 14:30] VITALS: BP 118/84; PULSE 66; RESP 16; O2SAT 100
== END 2022-11-07 14:33 | disposition home or self-care (01) ==
PROVIDERS: PCP Family Medicine; Visit Provider Internal Medicine Gastroenterology
PROC: 0DJ08ZZ Inspection of Upper Intestinal Tract, Via Natural or Artificial Opening Endoscopic (ICD-10-PCS; CPT 43235; principal; 2022-11-07 13:30)
PROC: 0DJD8ZZ Inspection of Lower Intestinal Tract, Via Natural or Artificial Opening Endoscopic (ICD-10-PCS; CPT 45378; 2022-11-07 13:30)
DX: R10.13 Epigastric pain (principal)
CPT/HCPCS: 45378; 43235

== ENCOUNTER 2023-03-07 08:38 | Outpatient (CLI) | payer OTHER, BC, SELFPAY ==
--- NOTE | ~2023-03-07 | XR_ITS ---
Lumbosacral Spine: AP and lateral views Clinical History: Pain Findings: The normal lordotic curve is maintained. The vertebral bodies and posterior elements are i ntact. The intervertebral disc spaces are preserved. The sacroiliac joints are normally outlined. Impression: No significant abnormality. Reviewed, dictated and finalized at [facility]. ANALYST Impression: No significant abnormality.
== END 2023-03-07 08:39 | disposition home or self-care (01) ==
LOC: ANHIMG 08:41
PROVIDERS: PCP Family Medicine; Visit Provider Physician Assistant
DX: M54.50 Low back pain, unspecified (principal)
CPT/HCPCS: 72100

== ENCOUNTER 2023-04-04 16:03 | Outpatient (RCR) | payer OTHER, BC, SELFPAY ==
--- NOTE | 2023-04-04 16:38 | OPREHPOC ---
Outpatient Therapy Plan of Care This is a Multidisciplinary Plan of Care that may contain components documented by all disciplines (PT, OT, and ST.) PT Problem 1 PT Problem #1 Knowledge Deficit PT Goal 1 Goal patient to demonstrate independence with HEP Target Visit 5 PT Problem 2 PT Problem #2 Pain PT Goal 1 Goal 1. Patient to report highest back pain at 2/10 2. Patient to report ability to sleep with no disturbance due to back pain Target Visit 10 PT Problem 3 PT Problem #3 Impaired Range of Motion PT Goal 1 Goal Patient to demonstrate lumbar flexion to reach to floor and B rotation to 45 deg with no increase in pain to return to house hold tasks at PLOF. Target Visit 10 PT Problem 4 PT Problem #4 Impaired Strength PT Goal 1 Goal 1. Patient to demonstrate 4+/5 B hip strength 2. Patient to demonstrate 4/5 core strength to improve ability to lift with no increase in pain Target Visit 10 PT Problem 5 PT Problem #5 Impaired Functional Mobil PT Goal 1 Goal 1. Patient to demonstrate B HS length to 20 deg to decrease pain with prolonged standing and walking 2. Patient to improve Back Index scoring by 20% Target Visit 10
--- NOTE | 2023-04-04 16:38 | PTOPEVAL1 ---
Assessment and note entered by Wanda Camacho DPT Evaluation Information Assessment Status Evaluation Diagnosis low back pain Onset 03/27/23 Subjective Information Patient reports she has had low back pain for the last 2-3 months with no injury. She reports pain is intermittent with more on L side especially with pressure. She reports yesterday she was loading groceries into her car and is now having pain in the mid back. She reports difficulty with sitting for prolonged periods of time and has increased pain after sleeping. She reports she has had negative x-rays of the low back. She was prescribed meloxicam but did not continue taking it because it made her sick. 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 RTMD in 1 month. Reported Pain Level Pain Score 0,5: Self Report Assessment PT Clinical Summary Mrs. Gil is a 53 year old female who presents to PT with low and mid back pain. Patient demonstrates decreased B LE strength, decreased core strength and decreased B LE flexibility impairing her ability to complete house hold tasks , sleep, and sit for prolonged periods at work. Patient would benefit from skilled PT to address impairments and return to PLOF. Plan of Care Interventions Electrical Stimulation,Gait Training,Hot Pack/Cold Pack,Manual Therapy,Mechanical Traction,Neuro Re- education,Patient/Caregiver Educati,Therapeutic Activities,Therapeutic Exercise PT Services Indicated Yes Treatment Frequency and 2x weekly for 10 visits Duration These treatments will address the objective and functional deficits as defined above. The patient will be advanced safely and appropriately in order for the patient to progress towards his/her prior level of function. Additional exercises will be introduced and as well as a comprehensive home exercise program upon discharge, if needed, ?to ensure carryover of functional gains achieved in the clinic. This treatment plan has been reviewed and agreement upon by the patient.
--- NOTE | 2023-05-25 16:43 | OPREHPOC ---
Outpatient Therapy Plan of Care This is a Multidisciplinary Plan of Care that may contain components documented by all disciplines (PT, OT, and ST.) PT Problem 1 PT Problem #1 Knowledge Deficit PT Goal 1 Goal patient to demonstrate independence with HEP Target Visit 5 Progress Met PT Problem 2 PT Problem #2 Pain PT Goal 1 Goal 1. Patient to report highest back pain at 2/10 - met 2. Patient to report ability to sleep with no disturbance due to back pain -progressing towards , continue Target Visit 12 PT Problem 3 PT Problem #3 Impaired Range of Motion PT Goal 1 Goal Patient to demonstrate lumbar flexion to reach to floor and B rotation to 45 deg with no increase in pain to return to house hold tasks at PLOF. - progressing toward, continue Target Visit 12 PT Problem 4 PT Problem #4 Impaired Strength PT Goal 1 Goal 1. Patient to demonstrate 4+/5 B hip strength - progressing towards, continue 2. Patient to demonstrate 4/5 core strength to improve ability to lift with no increase in pain -progressing towards, continue Target Visit 12 PT Problem 5 PT Problem #5 Impaired Functional Mobil PT Goal 1 Goal 1. Patient to demonstrate B HS length to 20 deg to decrease pain with prolonged standing and walking -met 2. Patient to improve Back Index scoring by 20% - met Target Visit 10 Progress Met
--- NOTE | 2023-05-25 16:43 | PTOPPROG ---
Assessment and note entered by Luisa Gates, PT Evaluation Information Assessment Status Progress Diagnosis Low Back Pain Onset 03/27/23 Subjective Information Patricia Gil reports overall she has less pain but she still gets a little pain with sleeping. She feels the massage treatment she had last visit really seemed to help even though she was a little sore following the massage. She also has tried sleeping with a pillow between her knees the last couple nights and that has helped too. She would like to continue PT for 2 more weeks to further decrease pain now that we have been able to pinpoint the source of her pain. Assessment PT Clinical Summary Patricia Gil has completed 10 PT visits for low and mid back pain. She reports her lower back pain was gradually improving but last visit she had a different massage technique used on her and changed the way she was sleeping and it really seemed to help. She would like to continue PT 1 time a week for 2 more weeks to further decrease pain with sleeping. She objectively demonstrates increased lumbar AROM, improved core strength, and improved hip strength. She continues to demonstrate decreased right lateral lumbar flexion AROM, tenderness on the left quadratus lumborum, and decreased lower abdominal and gluteus medius strength. She will continue to benefit from skilled PT further address pain and weakness as well as to reinforce good sleeping posture and proper body mechanics. Plan of Care Interventions Electrical Stimulation,Gait Training,Hot Pack/Cold Pack,Manual Therapy,Mechanical Traction,Neuro Re- education,Patient/Caregiver Educati,Therapeutic Activities,Therapeutic Exercise PT Services Indicated Yes Treatment Frequency and 1 time a week for 2 visits Duration These treatments will address the objective and functional deficits as defined above. The patient will be advanced safely and appropriately in order for the patient to progress towards his/her prior level of function. Additional exercises will be introduced and as well as a comprehensive home exercise program upon discharge, if needed, ?to ensure carryover of functional gains achieved in the clinic. This treatment plan has been reviewed and agreement upon by the patient.
--- NOTE | 2023-06-06 16:29 | OPREHPOC ---
Outpatient Therapy Plan of Care This is a Multidisciplinary Plan of Care that may contain components documented by all disciplines (PT, OT, and ST.) PT Problem 1 PT Problem #1 Knowledge Deficit PT Goal 1 Goal patient to demonstrate independence with HEP Target Visit 5 Progress Met PT Problem 2 PT Problem #2 Pain PT Goal 1 Goal 1. Patient to report highest back pain at 2/10 - met 2. Patient to report ability to sleep with no disturbance due to back pain -met Target Visit 12 Progress Met PT Problem 3 PT Problem #3 Impaired Range of Motion PT Goal 1 Goal Patient to demonstrate lumbar flexion to reach to floor and B rotation to 45 deg with no increase in pain to return to house hold tasks at PLOF. -met Target Visit 12 Progress Met PT Problem 4 PT Problem #4 Impaired Strength PT Goal 1 Goal 1. Patient to demonstrate 4+/5 B hip strength - met 2. Patient to demonstrate 4/5 core strength to improve ability to lift with no increase in pain -met Target Visit 12 Progress Met PT Problem 5 PT Problem #5 Impaired Functional Mobil PT Goal 1 Goal 1. Patient to demonstrate B HS length to 20 deg to decrease pain with prolonged standing and walking -met 2. Patient to improve Back Index scoring by 20% - met Target Visit 10 Progress Met
--- NOTE | 2023-06-06 16:29 | PTOPDC ---
Assessment and note entered by Luisa Gates, PT Evaluation Information Assessment Status Progress Diagnosis Low Back Pain Onset 03/27/23 Subjective Information Patricia Gil reports she still has a dull ache deep on the left lower back but overall it is better. She does not feel limited with her daily activities and pain does not ever get higher than 2/10. She feels she can continue to work on decreasing pain independently with her home exercises and self massage techniques. Reported Pain Level Pain Score 0,2: Self Report Assessment PT Clinical Summary Patricia Gil has completed 12 physical therapy visits for low back pain. She is reporting significantly less pain in the left lower back and does not have limitations with daily activities. She objectively demonstrates improved lumbar AROM, improved core strength, improved hamstring flexibility, and improved functional abilities. She does still have mild tenderness on the left quadratus lumborum but this has improved over the last 3 weeks and she independent with self massage techniques and flexibility exercises to continue address the QL. She will be discharged to an independent [facility]. Plan of Care PT Services Indicated No
--- NOTE | 2023-06-06 16:30 | PTOPDC ---
Assessment and note entered by Luisa Gates, PT Evaluation Information Assessment Status Discharge Diagnosis Low Back Pain Onset 03/27/23 Subjective Information Patricia Gil reports she still has a dull ache deep on the left lower back but overall it is better. She does not feel limited with her daily activities and pain does not ever get higher than 2/10. She feels she can continue to work on decreasing pain independently with her home exercises and self massage techniques. Reported Pain Level Pain Score 0,2: Self Report Assessment PT Clinical Summary Patricia Gil has completed 12 physical therapy visits for low back pain. She is reporting significantly less pain in the left lower back and does not have limitations with daily activities. She objectively demonstrates improved lumbar AROM, improved core strength, improved hamstring flexibility, and improved functional abilities. She does still have mild tenderness on the left quadratus lumborum but this has improved over the last 3 weeks and she independent with self massage techniques and flexibility exercises to continue address the QL. She will be discharged to an independent [facility]. Plan of Care PT Services Indicated No
== END 2023-06-06 20:00 | disposition home or self-care (01) ==
LOC: CHSPT 16:03
PROVIDERS: PCP Family Medicine; Visit Provider Physician Assistant
DX: M54.50 Low back pain, unspecified (principal)
CPT/HCPCS: 97014; 97110; 97140; 97161; G0283

== ENCOUNTER 2023-06-23 07:53 | Outpatient (CLI) | payer OTHER, BC, SELFPAY ==
--- NOTE | ~2023-06-23 | MR_ITS ---
MRI of the lumbar spine Clinical History: Back pain Technique: Axial T2-weighted images, and sagittal T1-weighted, T2-weighted, and T2 fat-sat images wer e acquired. Findings: There is no fracture or subluxation of the lumbar spine. Vertebral bodies maintain normal h eight and alignment. No bone marrow signal abnormality seen. At L1-L2, L2-L3, L3-L4, there is no disc bulge or herniation. There are mild facet joint degenerative changes. No spinal canal stenosis or neural foraminal narrowing at these levels. At L4-L5, there is minimal disc bulge and mild to moderate facet arthropathy. No central canal stenos is or neural foraminal narrowing. At L5-S1, there is mild disc bulge with tiny annular fissure. There is mild facet arthropathy. No paco tral canal stenosis or neural foraminal narrowing. Paravertebral soft tissues are unremarkable. Impression: Minimal degenerative spondylosis, as above. Reviewed, dictated and finalized at location . DEVELOPER Impression: Minimal degenerative spondylosis, as above.
== END 2023-06-23 07:54 | disposition home or self-care (01) ==
PROVIDERS: PCP Family Medicine; Visit Provider Physician Assistant
DX: M54.50 Low back pain, unspecified (principal); M43.06 Spondylolysis, lumbar region
CPT/HCPCS: 72148

== ENCOUNTER 2023-08-16 15:29 | Outpatient (CLI) | payer OTHER, BC, SELFPAY ==
--- NOTE | ~2023-08-16 | US_ITS ---
EXAMINATION: US renal BI DATE: 08/16/2023 16:05 INDICATION: Left-sided renal colic TECHNIQUE: Multiple ultrasound grayscale images of the kidneys were obtained. COMPARISON: None. FINDINGS: The right kidney measures 11.0 x 5.8 x 4.7 cm. The left kidney measures 11.5 x 4.3 x 4.4 cm. The kidn eys demonstrate normal echogenicity. There is mild right hydronephrosis. There is no hydronephrosis i n the left kidney. No stones identified. The bladder is normal with bilateral ureteral jets visualiz ed in the bladder on color Doppler. IMPRESSION: 1. Mild right hydronephrosis but with persistent right-sided ureteral jet visualized with color Dopp ler in the bladder. 2. Normal left kidney with no hydronephrosis. Reviewed, dictated and finalized at location A. IMPRESSION: 1. Mild right hydronephrosis but with persistent right-sided ureteral jet visu alized with color Doppler in the bladder. 2. Normal left kidney with no hydronephrosis.
== END 2023-08-16 15:30 | disposition home or self-care (01) ==
LOC: ANHIMG 15:30
PROVIDERS: PCP Family Medicine; Visit Provider Physician Assistant
DX: N23 Unspecified renal colic (principal); N13.30 Unspecified hydronephrosis
CPT/HCPCS: 76775

== ENCOUNTER 2023-08-25 15:12 | Outpatient (CLI) | payer OTHER, BC, SELFPAY ==
--- NOTE | ~2023-08-25 | CT_ITS ---
EXAMINATION: CT abdomen pelvis wo con DATE: 08/25/2023 15:35 INDICATION: Hydronephrosis. TECHNIQUE: Computed tomography (CT) of the abdomen and pelvis was performed without intravenous contr ast. Automated exposure control and iterative reconstruction technique were employed. The dose-length product was 760.75 mGy-cm. COMPARISON: CT abdomen and pelvis 08/24/2022 FINDINGS: The visualized portions of the lung bases demonstrate mild atelectasis. No pleural effusion . The heart size is normal. No pericardial effusion. The liver, gallbladder, spleen, pancreas, adrena l glands, and left kidney are normal. There is mild right hydronephrosis and hydroureter. There is a 2 mm stone at right ureterovesicular junction. There is diverticulosis of the colon without evidence of diverticulitis. There are no dilated loops of bowel. The appendix is normal. There are no patholog ically enlarged lymph nodes. There is no free intraperitoneal fluid. There is mild thoracic and lumba r spondylosis. IMPRESSION: 1. 2 mm stone at right ureterovesicular junction with mild right hydronephrosis and hydroureter. Reviewed, dictated and finalized at location E.
== END 2023-08-25 15:13 ==
PROVIDERS: PCP Physician Assistant; Visit Provider Physician Assistant
DX: N20.2 Calculus of kidney with calculus of ureter (principal); N13.4 Hydroureter; N13.30 Unspecified hydronephrosis
CPT/HCPCS: 74176

== ENCOUNTER 2023-10-03 14:34 | Outpatient (CLI) | payer OTHER, BC, SELFPAY ==
--- NOTE | ~2023-10-03 | XR_ITS ---
Supine and upright views of the abdomen Clinical history: Right ureteral stone Findings: Bowel gas pattern is nonspecific. No evidence for obstruction or free air. Calcified pelvic phleboliths are present. No definite renal or ureteral stone.. Osseous structures are intact. Impression: Calcified pelvic phleboliths. No definite renal or ureteral stone, although distal ureteral stone is difficult to exclude completely. Reviewed, dictated and finalized at [facility]. Impression: Calcified pelvic phleboliths. No definite renal or ureteral stone, although dis marielos ureteral stone is difficult to exclude completely.
== END 2023-10-03 14:35 | disposition home or self-care (01) ==
PROVIDERS: PCP Physician Assistant; Visit Provider Nurse Practitioner Family
DX: N20.1 Calculus of ureter (principal); I87.8 Other specified disorders of veins
CPT/HCPCS: 74018

== ENCOUNTER 2024-06-06 11:23 | Emergency (ER) | payer OTHER, BC, SELFPAY ==
--- NOTE | ~2024-06-06 | CT_ITS ---
EXAMINATION: CT abdomen pelvis wo con DATE: 06/06/2024 14:06 INDICATION: Bilateral lower quadrant abdominal pain. TECHNIQUE: Computed tomography (CT) of the abdomen and pelvis was performed without intravenous contr ast. Automated exposure control and iterative reconstruction technique were employed. The dose-length product was 655.27 mGy-cm. COMPARISON: 08/25/2023 and 08/24/2022 FINDINGS: Mild discoid atelectasis at the bilateral lower lobes. 5-6 mm part solid right lower lobe nodule with out significant interval change since CT dated 08/24/2022. Heart size is normal. No significant change in a 1.2 cm hypodense lesion in the spleen most likely splenic cyst or hemangioma. Gallbladder, pancr eas, bilateral adrenal glands and kidneys are normal. There is mild sigmoid diverticulosis with some fissuring surrounding a diverticulum at the mid sigmoid colon consistent with diverticulitis. No absc ess or free intraperineal gas or fluid. Small bowel and appendix are normal. Bladder, anteverted uter us and right adnexa are unremarkable. 9 mm hypodense likely hemorrhagic cyst at the left ovary. No pa thologically enlarged abdominal or pelvic lymphadenopathy. Mild scattered degenerative skeletal puga es. IMPRESSION: 1. Radiographically uncomplicated sigmoid diverticulitis. Reviewed, dictated and finalized at location [facility]. [facility]
--- OUTSIDE RECORDS SUMMARY | 2024-06-06 11:32 | XMS_ITS | Patient Health Summary ---
Author Organization [facility] Address [address] [place] [address] Care Team Providers Care Restaurant Shift Supervisor Name Role Phone Dennis Gonzalez MD Primary Care Provider [phone] Note from [facility],non-owned Affiliates and Associated Physician Practices is amultiple site organization consisting of ambulatory clinics and hospital sitesin [place], [place], [place] and [place]. This disclosure is being madepursuant to the Care Everywhere program and may not contain all information available regarding this patient. Last updated 18.[facility] Allergies * Contrast-Iodinated Agents For Ct/Other(Urticaria) -Medium Criticality * Prednisone(Vision Changes) -Medium Criticality * Sulfa Drugs(Nausea and/or Vomiting) -Low Criticality Medications * Be aware that medications may not be up to date on this document. Alwaysverify current medications with the patient. * ibuprofen (Motrin) 200 MG tablet every 6 hours * Cholecalciferol 50 MCG (1999 UT) Take 1 (one) tablet by mouth once daily * Tennille-3 Fatty Acids (Fish Oil) 1200 MG Take 1 tablet by mouth once daily * naproxen (Naprosyn) 500 MG tablet(Started 07/04/2023) TAKE 1 TABLET BY MOUTH 2 TIMES A DAY NEEDED Social History Tobacco Use Types Packs/Day Years Used Date Smoking Tobacco: Never Passive Smoke Exposure: Never Smokeless Tobacco: Never Tobacco Cessation:Counseling Given: No Alcohol Use Standard Drinks/Week Comments Yes 1 (1 standard drink = 0.6 oz pur e alcohol) Sex and Gender Information Value Date Recorded Sex Assigned at Not on file Gender Identity Not on file Sexual Orientation Not on file Last Filed Vital Signs Vital Sign Reading Time Taken Comments Blood Pressure 122/78 08/07/2023 3:00 PM CDT Pulse - - Temperature - - Respiratory Rate - - Oxygen Saturation - - Inhaled Oxygen Concentration - - Weight 86.6 kg (191 lb) 08/07/2023 3:00 PM CDT Height 170.2 cm (5' 7 ) 08/07/2023 3:00 PM CDT Body Mass Index 29.91 08/07/2023 3:00 PM CDT Procedures * DERMATOPATHOLOGY(Performed 07/06/2023) * DERMATOPATHOLOGY(Performed 06/13/2023) * TSH REFLEX FREE T4(Performed 08/11/2022) Performed for Family history of thyroid disorder, Hot flashes * PAP IG LB +HPV APTIMA REFLEX 16,18/45(Performed 08/04/2022) Performed for Pap smear for cervical cancer screening * PAP CERVICAL CANCER SCREEN APT(Performed 08/04/2022) Performed for Pap smear for cervical cancer screening Results * DERMATOPATHOLOGY (07/06/2023 11:31 AM CDT) Only the most recent of2 resultswithin the time period is included. Case Report Dermatopathology Report Case: [id number] Authorizing Provider: Patricia Crow DO Collected: 07/06/2023 11:31 AM Ordering Location: [facility] - Received: 07/06/2023 02:38 PM DermPath Lab Pathologist: Berenice Gardner MD Specimen: Skin, left lower back 3:26 PM CDT DERMATOPATHOLOGY LABORATORY Amended Report Clerical error, change in spelling for last name to Keith. 4 3:26 PM CDT DERMATOPATHOLOGY LABORATORY Final Diagnosis Specimen A. SKIN, left lower back: DERMAL SCAR RESIDUAL BASAL CELL CARCINOMA NOT IDENTIFIED (L90.5) 4 3:26 PM CDT DERMATOPATHOLOGY LABORATORY Amendment electronically signed by Berenice Gardner MD on 07/10/2023 at 3:26 PM Clinical History BCC Bx Proven. Check margins, Prior Biopsy 4 3:26 PM CDT DERMATOPATHOLOGY LABORATORY Gross Description Specimen A: Received is one formalin filled container labeled with the patient's name and designated left lower back. The specimen consists of a non-oriented ellipse of skin measuring [id number] mm. The epidermal surface is unremarkable. The margin is inked green. The 12 o'clock and 6 o'clock tips are submitted in cassette 1. The remainder of the ellipse is serially sectioned and submitted in cassette 2-3. Jar 0. 4 3:26 PM T DERMATOPATHOLOGY LABORATORY Microscopic Description Specimen A. SKIN, left lower back: There are fibroblasts and collagen bundles oriented parallel to the skin surface. There are elongated blood vessels, some of which are oriented perpendicular to the skin surface. No basal cell carcinoma is identified. 4 3:26 PM T DERMATOPATHOLOGY LABORATORY Disclaimer An external and internal positive and negative controls are appropriate for the histochemical, immunohistochemical and immunofluorescence stain(s) in this case (if any), except where stated explicitly. The performance characteristics of the stain(s) cited in this report were developed and its performance characteristic determined by the Dermatopathology Laboratory at [facility], directed by Dr. Yang Peterson. These tests need not be, and therefore are not, approved by the [place] Food and Drug Administration. The tests are used for clinical purposes. Billing Codes Specimen Charges Stain Charges 65006 1 4 3:26 PM CDT DERMATOPATHOLOGY LABORATORY Embedded Images 4 3:26 PM CDT DERMATOPATHOLOGY LABORATORY Pathology/Cytolo gy TISSUE SPECIMEN FROM SKIN / Unknown 07/06/2023 11:31 AM CDT 07/06/2023 2:38 PM CDT Patricia Crow DO LAB - PATHOLOGY/C YTOLOGY ORDERABLES DERMATOPATHOLOGY LABORATORY [facility] - Department of Dermatology [address], [address] [phone] * TSH REFLEX FREE T4 (08/11/2022 9:19 AM CDT) TSH with Reflex FT4 1.80 mIU/L [facility] Comment: Reference Range > or = 20 Years 0.40-4.50 Ranges First trimester 0.26-2.66 Second trimester 0.55-2.73 Third trimester 0.43-2.91 REPORT COMMENT: FASTING:YES Test Performed at: [facility] [address] [address] [id number] DALLIN KAPLAN MD Blood BLOOD SPECIMEN / Unknown 08/11/2022 9:19 AM CDT 08/11/2022 9:20 AM CDT Yeni Iqbal MD LAB - CHEMISTRY O RDERABLES [facility] [address] [place] [address] * PAP CERVICAL CANCER SCREEN APT (08/04/2022 4:32 PM CDT) Age Gdln ACOG Testing 30-65 [facility] ACCOUNT BILL PART OF UTERINE CERVIX / Unknown 08/04/2022 4:32 PM CDT 08/05/2022 Narrative [facility] ACCOUNT BILL - 08/10/2022 8:14 AM CDT Source.............Cervix No. of containers..01 ThinPrep Vial Resulting Agency Comment Lab Testing performed at: [address] [id number] Yeni Iqbal MD LAB - PATHOLOGY/C YTOLOGY ORDERABLES [facility] ACCOUNT BILL [address] [place] [address] * PAP IG LB +HPV APTIMA REFLEX 16,18/45 (08/04/2022 4:32 PM CDT) Diagnosis [facility] ACCOUNT BILL Comment:NEGATIVE FOR INTRAEP ITHELIAL LESION OR MALIGNANCY. Specimen Adequacy [facility] ACCOUNT BILL Comment: Satisfactory for evaluation. Endocervical and/or squamous metaplastic cells (endocervical component) are present. Clinician Provided ICD10 [facility] ACCOUNT BILL Comment: Z01.419 Z12.4 R23.2 Z83.49 Performed by [facility] ACCOUNT BILL Comment:Jt Pierson , Instrument Panel Assembler (ASCP) Comment . [facility] ACCOUNT BILL Note [facility] ACCOUNT BILL Comment: The Pap smear is a screening test designed to aid in the detection of premalignant and malignant conditions of the uterine cervix. It is not a diagnostic procedure and should not be used as the sole means of detecting cervical cancer. Both false-positive and false-negative reports do occur. . IGLBP CPT Code Automation [facility] ACCOUNT BILL Comment: This liquid based ThinPrep(R) pap test was screened with the use of an image guided system. Human papillomavirus Aptima Negative Negative [facility] ACCOUNT BILL Comment: This nucleic acid amplification test detects fourteen high-risk HPV types (16,18,31,33,35,39,45,51,52,56,58,59,66,68) without differentiation. HPV Genotype Reflexed [facility] ACCOUNT BILL Comment:Criteria not met, HP V Genotype not performed. 08/04/2022 4:32 PM CDT 08/05/2022 Narrative [facility] ACCOUNT BILL - 08/10/2022 8:14 AM CDT Source.............Cervix No. of containers..01 ThinPrep Vial Resulting Agency Comment Lab Testing performed at: [address] [id number] Yeni Iqbal MD LAB - PATHOLOGY/C YTOLOGY ORDERABLES [facility] ACCOUNT BILL [address] [place] [address] Care Teams Restaurant Shift Supervisor Relationship Specialty Start Date End Date Dennis Gonzalez MD [address] [place] [address] PCP - General Family Medicine 08/04/22
--- OUTSIDE RECORDS SUMMARY | 2024-06-06 11:32 | XMS_ITS | Referral Summary ---
Author Organization [facility] Address [address] [place] [address] Care Team Providers Care Load Tester Name Role Phone Dennis Gonzalez MD Primary Care Provider [phone] Source Comments [facility],non-owned Affiliates and Associated Physician Practices is amultiple site organization consisting of ambulatory clinics and hospital sitesin [place], [place], [place] and [place]. This disclosure is being madepursuant to the Care Everywhere program and may not contain all information available regarding this patient. Last updated 18.[facility] Allergies Active Allergy Reactions Criticality Noted Date Comments Contrast-Iodinated Agents Fo r Ct/Other Urticaria Medium 11/20/2015 Prednisone Vision Changes Medium 12/27/2019 Sulfa Drugs Nausea and/or Vomiting Low 05/12/2022 Medications * Be aware that medications may not be up to date on this document. Alwaysverify current medications with the patient. Medication Sig Dispensed Refills Start Date End Date Status ibuprofen (Motrin) 200 MG tablet every 6 hours Active Cholecalciferol 50 MCG (1999) Take 1 (one) tablet by mouth once daily Active [place]-3 Fatty Acids (Fish Oil) 1200 MG Take 1 tablet by mouth once daily Active naproxen (Naprosyn) 500 MG tablet TAKE 1 TABLET BY MOUTH 2 TIMES A DAY NEEDED 07/04/2023 Active Social History Tobacco Use Types Packs/Day Years [...] Mass Index 29.91 08/07/2023 3:00 PM CDT Plan of Treatment Upcoming Encounters Date Type Department Care Team (Late st Contact Info) Description 08/06/2024 3:00 PM CDT Office Visit [facility] - LOAD TESTER [address] [place] [address], [address] [place] [phone] Yeni Iqbal MD [address] [place] [phone] Procedures Procedure Name Priority Date/Time Associated Diagnosis Comments PAP IG LB +HPV APTIMA REFLEX 16,18/45 Routine 08/04/2022 4:32 PM CDT Pap smear for cervical cancer screening from Last 3 Months or Most Recently Relevant to Health Maintenance Results * PAP IG LB +HPV APTIMA REFLEX 16,18/45 (08/04/2022 4:32 PM CDT) Diagnosis [facility] ACCOUNT BILL Comment:NEGATIVE FOR INTRAEP ITHELIAL LESION OR MALIGNANCY. Specimen Adequacy [facility] ACCOUNT BILL Comment: Satisfactory for evaluation. Endocervical and/or squamous metaplastic cells (endocervical component) are present. Clinician Provided ICD10 [facility] ACCOUNT BILL Comment: Z01.419 Z12.4 R23.2 Z83.49 Performed by [facility] ACCOUNT BILL Comment:Jt Pierson , Installation Technician (ASCP) Comment . [facility] ACCOUNT BILL Note [...] Resulting Agency Comment Lab Testing performed at: [address] [id number] Yeni Iqbal MD LAB - PATHOLOGY/C YTOLOGY ORDERABLES [facility] ACCOUNT BILL [address] [place] [address] from Last 3 Months or Most Recently Relevant to Health Maintenance Care Teams Load Tester Relationship Specialty Start Date End Date Dennis Gonzalez MD [address] [place] [phone] PCP - General Family Medicine 08/04/22
--- OUTSIDE RECORDS SUMMARY | 2024-06-06 11:32 | XMS_ITS | Clinical Summary ---
Author Organization [facility] Address [address] [place] [address] Care Team Providers Care Ror Engineer Name Role Phone Dennis Gonzalez MD Primary Care Provider [phone] Source Comments [facility],non-owned Affiliates and Associated Physician Practices is amultiple site organization consisting of ambulatory clinics and hospital sitesin [place], [place], [place]. This disclosure is being madepursuant to the Care Everywhere program and may not contain all information available regarding this patient. Last updated 18.[facility] Allergies Active Allergy Reactions Criticality Noted Date [...] (one) tablet by mouth once daily Active Concord-3 Fatty Acids (Fish Oil) 1200 MG Take 1 tablet by mouth once daily Active naproxen (Naprosyn) 500 MG tablet TAKE 1 TABLET BY MOUTH 2 TIMES A DAY NEEDED 07/04/2023 Active Family History Medical History Relation Name Comments Diabetes; unknown type Father pre-d iabetic High Blood Pressure Mother High Cholesterol Mother Cancer - Breast Neg Hx Cancer - Colon Neg Hx Cancer - Ovarian Neg Hx Cancer - Uterine Neg Hx Relation Name Status Comments Father Alive Mother Alive Social History Tobacco Use Types Packs/Day Years [...] Description 08/06/2024 3:00 PM CDT Office Visit [facility] - 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 [address] [place] [address], [address] [place] [phone] Yeni Iqbal MD [address] [place] [address] [place] [address] [place] [phone] Health Maintenance Due Date Last Done Comments COLOGUARD (AGES 45-75) - COLON CA SCREENING 1969 COLON MONITORING 1969 COLONOSCOPY - COLON CA SCREENING 1969 CT COLONOGRAPHY - COLON CA SCREENING 1969 Colorectal Cancer Screening 1969 FIT - COLON CA SCREENING 1969 FLEX SIG - COLON CA SCREENING 1969 LIPID TESTING 1969 HIV SCREENING 01/28/1984 HEPATITIS C SCREENING 01/23/1987 DTAP/TDAP/TD VACCINES (1 - Tdap) 01/28/1988 HEPATITIS B VACCINE (1 of 3 - 19+ 3-dose series) 01/28/1988 PNEUMOCOCCAL VACCINE 50+ (1 of 1 - PCV) 2019 ZOSTER VACCINE (1 of 2) 2019 SCREENING FOR DIABETES 08/07/2023 COVID-19 VACCINE ( season) 2023 12/01/2020, 11/04/2020 INFLUENZA VACCINE (#1) 2023 DEPRESSION SCREENING 04/24/2024 MAMMOGRAM 05/10/2025 05/10/2023, 04/24, 05/03/2022, Additional history exists PAP with HPV 08/05/2027 08/04/2022 HIB VACCINE Aged Out No longer eligi ble based on patient's age to complete this topic HPV VACCINE Aged Out No longer eligi ble based on patient's age to complete this topic MENINGOCOCCAL (Group B) VACCINE Aged Out No longer eligible based on patient's age to complete this topic MENINGOCOCCAL VACCINE Aged Out No ary jenn eligible based on patient's age to complete this topic PNEUMOCOCCAL VACCINE Aged Out No long er eligible based on patient's age to complete this topic Procedures Procedure Name Priority Date/Time Associated Diagnosis [...] by [facility] ACCOUNT BILL Comment:Jt Pierson , Tamale Maker (ASCP) Comment . [facility] ACCOUNT BILL Note [...] Resulting Agency Comment Lab Testing performed at: [facility] [address] [id number] Yeni Iqbal MD LAB - PATHOLOGY/C YTOLOGY ORDERABLES [facility] ACCOUNT BILL [address] [place] [address] from Last 3 Months or Most Recently Relevant to Health Maintenance Care Teams Ror Engineer Relationship Specialty Start Date End Date Dennis Gonzalez MD [address] [place] [address] PCP - General Family Medicine 08/04/22
--- OUTSIDE RECORDS SUMMARY | 2024-06-06 11:32 | XMS_ITS | Encounter Summary ---
Author Organization [facility] Address [address] [place] [address] Care Team Providers Care Top Former Name Role Phone Dennis Gonzalez MD Primary Care Provider [phone] Encounter Details Date Type Department Care Team (Late Contact Info) Description 07/06/2023 Lab Requisition [facility] - DermPath Lab [address] [facility], [place] [address] Patricia Crow, [address] [facility] [address] [place] [address] Social History Tobacco Use Types Packs/Day Years Used Date Smoking Tobacco: Never Assessed Sex and Gender Information Value Date Recorded Sex Assigned at Not on file Gender Identity Not on file Sexual Orientation Not on file documented as of this encounter Plan of Treatment Upcoming Encounters Date Type Department Care Team (Late Contact Info) Description 08/06/2024 3:00 PM CDT Office Visit 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 [address] [place] [address], [address] [place] [phone] Yeni Iqbal MD [address] [place] [phone] documented as of this encounter Procedures Procedure Name Priority Date/Time Associated Diagnosis Comments DERMATOPATHOLOGY Routine 07/06/2023 11:3 1 AM CDT documented in this encounter Results * DERMATOPATHOLOGY (07/06/2023 11:31 AM CDT) Case Report Dermatopathology Report Case: [id number] Authorizing Provider: Patricia Crow DO Collected: 07/06/2023 11:31 AM Ordering Location: [facility] - Received: 07/06/2023 02:38 PM DermPath Lab Pathologist: Berenice Gardner MD Specimen: Skin, left lower back 3:26 PM CDT DERMATOPATHOLOGY LABORATORY Amended Report Clerical error, change in spelling for last name to Keith. 3:26 PM CDT DERMATOPATHOLOGY LABORATORY Final Diagnosis Specimen A. SKIN, left lower back: DERMAL SCAR RESIDUAL BASAL CELL CARCINOMA NOT IDENTIFIED (L90.5) 3:26 PM CDT DERMATOPATHOLOGY LABORATORY Amendment electronically signed by Berenice Gardner MD on 07/10/2023 at 3:26 PM Clinical History BCC Bx Proven. Check margins, Prior Biopsy 3:26 PM CDT DERMATOPATHOLOGY LABORATORY Gross Description Specimen A: Received is one formalin filled container labeled with the patient's name and designated left lower back. The specimen consists of a non-oriented ellipse of skin measuring [id number] mm. The epidermal surface is unremarkable. The margin is inked green. The 12 o'clock and 6 o'clock tips are submitted in cassette 1. The remainder of the ellipse is serially sectioned and submitted in cassette 2-3. Jar 0. 3:26 PM CDT DERMATOPATHOLOGY LABORATORY Microscopic Description Specimen A. SKIN, left lower back: There are fibroblasts and collagen bundles oriented parallel to the skin surface. There are elongated blood vessels, some of which are oriented perpendicular to the skin surface. No basal cell carcinoma is identified. 3:26 PM T DERMATOPATHOLOGY LABORATORY Disclaimer An external and internal positive and negative controls are appropriate for the histochemical, immunohistochemical and immunofluorescence stain(s) in this case (if any), except where stated explicitly. The performance characteristics of the stain(s) cited in this report were developed and its performance characteristic determined by the Dermatopathology Laboratory at [facility], directed by Dr. Yang Peterson. These tests need not be, and therefore are not, approved by the [place] Food and Drug Administration. The tests are used for clinical purposes. Billing Codes Specimen Charges Stain Charges 93861 1 4 3:26 PM CDT DERMATOPATHOLOGY LABORATORY Embedded Images 4 3:26 PM CDT DERMATOPATHOLOGY LABORATORY Pathology/Cytolo gy TISSUE SPECIMEN FROM SKIN / Unknown 07/06/2023 11:31 AM CDT 07/06/2023 2:38 PM CDT Patricia Crow DO LAB - PATHOLOGY/C YTOLOGY ORDERABLES DERMATOPATHOLOGY LABORATORY [facility] - Department of Dermatology [address] [phone] documented in this encounter Visit Diagnoses Not on filedocumented in this encounter Care Teams Top Former Relationship Specialty Start Date End Date Dennis Gonzalez MD [address] [place] [phone] PCP - General Family Medicine 08/04/22 documented as of this encounter
--- OUTSIDE RECORDS SUMMARY | 2024-06-06 11:32 | XMS_ITS | Clinical Summary ---
Author Organization [facility] Address [address] [place] [address] Care Team Providers Care Sales Merchandising Specialist Name Role Phone Dennis Gonzalez MD Primary Care Provider Allergies Active Allergy Reactions Criticality Noted Date Comments Iodinated Contrast Media Hives Medium 11/20/2015 Prednisone Vision changes Medium 12/27/2019 Sulfa (Sulfonamide Antibiotics) Nausea only Low Medications ibuprofen (ADVIL,MOTRIN) 200 mg tab/cap every 6 hours. Active fw-qpoecva-fjh- iron fm-FA-vitK 18 mg iron-600 mcg-80 mcg tablet Take by mouth. Activ e cephalexin (KEFLEX) 500 mg capsule Take 1 capsule (500 mg total) by mouth 3 (three) times a day 21 capsule 9 Active Additional Information Patient not taking.Reported on 07/22/2022 hydrocortisone 2.5 % cream Apply topically 2 (two) times a day Apply to itchy rash on R breast 30 g 1 Active Additional Information Patient not taking.Reported on 05/12/2022 cholecalciferol (VITAMIN D-3) 2000 unit tablet Take 1 tablet (2,000 Units total) by mouth daily Active omega-3 fatty acids-fish oil 360-1,200 mg capsule Take 1 tablet by mouth daily Active Active Problems Problem Noted Date Diagnosed Date Nonsustained ventricular tachycardia 05/12/2022 History of nonmelanoma skin cancer 12/22/2015 Liver mass 07/06/2015 Lung mass 07/06/2015 Basal cell carcinoma (BCC) of cheek 01/14/2015 Surgical follow-up care 12/17/2014 Insect bite 12/09/2014 Milia 12/09/2014 Actinic keratosis 12/09/2014 Basal cell carcinoma (BCC) of upper extremity Infectious warts 11/20/2012 Neoplasm of connective and soft tissue 3 Encounters Date Type Department Care Team Description 06/04/2024 7:43 AM MATERIALS PLANNER/PRODUCTION PLANNER - 06/04/2024 11:59 PM MATERIALS PLANNER/PRODUCTION PLANNER Hospital Encounter [facility] Advanced Medicine Breast Imaging [facility] ([facility]) [address] [place] [phone] Screening mammogram, encounter for Discharge Disposition: Discharge to home or self care from Last 3 Months Immunizations Name Administration Dates Next Due Influenza, Trivalent, Cell C ulture-based MDCK, Preservative Free, Antibiotic Free, Intramuscular 02/13/2024 Pfizer SARS-CoV-2 Monovalent Vaccination (12+ Yrs) PURPLE 12/01/2020,11/04/2020 Surgical History Surgery Date Site/Laterality Comments TONSILLECTOMY LASIK Family History Medical History Relation Name Comments Thyroid disease Brother Diabetes Father Glaucoma Father Cancer Mother Hypertension Mother Skin cancer Mother Cataracts Neg Hx Macular degeneration Neg Hx Retinal detachment Neg Hx Relation Name Status Comments Brother Father Mother Social History Tobacco Use Types Packs/Day Years Used Date Smoking Tobacco: Never Passive Smoke Exposure: Never Smokeless Tobacco: Never Tobacco Cessation:Counseling Given: Not Answered Comments Unknown Sex and Gender Information Value Date Recorded Sex Assigned at Not on file Legal Sex Female 4:20 AM MATERIALS PLANNER/PRODUCTION PLANNER Gender Identity Not on file Sexual Orientation Not on file Obstetrics History Last Filed Vital Signs Vital Sign Reading Time Taken Comments Blood Pressure 118/70 01/17/2023 2:30 PM CDT Pulse 75 01/17/2023 2:30 PM CDT Temperature - - Respiratory Rate - - Oxygen Saturation 94% 01/17/2023 2:30 PM CDT Inhaled Oxygen Concentration - - Weight 83 kg (183 lb) 01/17/2023 2:30 PM CDT Height 170.2 cm (5' 7 ) 01/17/2023 2:30 PM CDT Body Mass Index 28.66 01/17/2023 2:30 PM CDT Plan of Treatment Health Maintenance Due Date Last Done Comments Cervical Cancer Screening 1969 Colon Cancer Screening-Colonoscopy 1969 Depression Screening 1969 Hepatitis C Screening 1969 Hepatitis B Screening 1987 Regular Well Visit/Exam 18-64 1987 DTaP/Tdap/Td Vaccine (1 - Tdap) 05/31/2000 05/30/2000 Zoster Vaccine (1 of 2) 2019 Covid-19 Vaccine (3 - season) 2023 12/01/2020, 11/04/2020 Breast Cancer Screening-Mammogram 06/04/2025 06/04/2024, 05/10/2023, 05/03/2022, Additional history exists Influenza Vaccine Completed 02/13/2024 Pneumococcal vaccine <65 Aged Out No longer eligible based on patient's age to complete this topic Procedures Procedure Name Priority Date/Time Associated Diagnosis Comments SCREENING MAMMOGRAM BILATERAL W MALCOLM Schedule Routine, Read Routine (OP Routine) 06/04/2024 8:02 AM MATERIALS PLANNER/PRODUCTION PLANNER Screening mammogram, encounter for from Last 3 Months Results * Screening Mammogram Bilateral W Malcolm (06/04/2024 8:02 AM MATERIALS PLANNER/PRODUCTION PLANNER) Anatomical Region Laterality Modality Breast Bilateral Mammography Narrative 06/04/2024 11:53 AM MATERIALS PLANNER/PRODUCTION PLANNER Mammogram Technique: Bilateral Digital Breast Tomosynthesis, Bilateral C-view 2D Screening mammogram. Views obtained: bilateral craniocaudal; bilateral mediolateral oblique; and left craniocaudal exaggerated to axilla. Computer Aided Detection was performed. Mammogram Findings: The present examination has been compared to prior imaging studies performed at [facility] on 02/18/2021, 05/03/2022 and 05/10/2023. There are scattered areas of fibroglandular density. There is asymmetry in the posterior central breast on the craniocaudal view of the left breast. There is no suspicious abnormality in the right breast. Impression: Asymmetry in the left breast requires additional evaluation. Diagnostic mammogram and possible ultrasound of the left breast are recommended at this time. OVERALL FINAL ASSESSMENT: BI-RADS CATEGORY 0: Incomplete: Need additional imaging evaluation. Procedure Note Cass Parish MD - 06/04/2024 Mammogram Technique: Bilateral Digital Breast Tomosynthesis, Bilateral C-view 2D Screening mammogram. Views obtained: bilateral craniocaudal; bilateralmediolateral oblique; and left craniocaudal exaggerated to axilla. Computer Aided Detection was performed. Mammogram Findings: The present examination has been compared to prior imaging studies performed at [facility] on 02/18/2021, 05/03/2022 and 05/10/2023. There are scattered areas of fibroglandular density. There is asymmetry in the posterior central breast on the craniocaudalview of the left breast. There is no suspicious abnormality in the right breast. Impression: Asymmetry in the left breast requires additional evaluation. Diagnostic mammogram and possible ultrasound of the left breast are recommended at this time. OVERALL FINAL ASSESSMENT: BI-RADS CATEGORY 0: Incomplete: Need additional imaging evaluation. us Self Screening Mammogram IMG MAMMO PROCEDURES Fi nal Result from Last 3 Months Insurance [employer] OR [facility] EMPLOYEES [facility] EMPL[employer]ES [facility] [facility] EM[employer]ES [facility] Care Teams Sales Merchandising Specialist Relationship Specialty Start Date End Date Dennis Gonzalez MD PCP - General 08/18/16
--- OUTSIDE RECORDS SUMMARY | 2024-06-06 11:32 | XMS_ITS | Clinical Summary ---
Author Organization [facility] Address [facility] [place] [address] Care Team Providers Care Detective Captain Name Role Phone Dennis Gonzalez MD Primary Care Provider Social History Tobacco Use Types Packs/Day Years Used Date Smoking Tobacco: Never Assessed Comments Unknown Sex and Gender Information Value Date Recorded Sex Assigned at Not on file Legal Sex Female 10:43 PM CDT Gender Identity Not on file Sexual Orientation Not on file Plan of Treatment Health Maintenance Due Date Last Done Comments Cervical Cancer Screening Pa p Smear (Age 30 to 64) Every 3 Years 1969 Colorectal Cancer Screening Colonoscopy (10 Years) 1969 Annual Physical 01/28/1972 Hepatitis C 1987 DTaP, Tdap and Td Vaccines ( 1 - Tdap) 01/28/1988 Hepatitis B Vaccines (1 of 3 - 19+ 3-dose series) 01/28/1988 Cervical Cancer Screening Pa p with HPV Testing (Age 30 to 64) Every 5 Years 1999 Cervical Cancer Screening with HPV 1999 Mammogram Screening 2009 Zoster Vaccines (1 of 2) 2019 COVID-19 Vaccine (2023-2 5 season) 2023 Influenza Adult (#1) 2024 Meningococcal B Vaccine Aged Out No l onger eligible based on patient's age to complete this topic Meningococcal Vaccine Aged Out No ary jenn eligible based on patient's age to complete this topic Pneumococcal Vaccine: Pediat rics (0 to 5 Years) and At-Risk Patients (6 to 64 Years) Aged Out No longer eligible b ased on patient's age to complete this topic RSV Immunizations Under 20 Months Aged Out No longer eligible based on patient's age to complete this topic Insurance [facility] Care Teams Detective Captain Relationship Specialty Start Date End Date Dennis Gonzalez MD [address] [place] [address] PCP - General FAMILY PRACTICE 06/23/20
--- OUTSIDE RECORDS SUMMARY | 2024-06-06 11:32 | XMS_ITS | Encounter Summary ---
Author Organization [facility] Address [address] [place] [address] Care Team Providers Care Change Control Analyst Name Role Phone Dennis Gonzalez MD Primary Care Provider Reason for Referral * Diagnostic Imaging (Routine) - Closed Specialty Diagnoses / Procedures Referred By Contac t Referred To Contact Diagnoses Screening mammogram, encounter for Procedures Screening Mammogram Bilateral W Malcolm Screening Mammogram, Self [facility] Referral ID Status Reason Start Date Expiration Date Visits Re quested Visits Authorized [id number] Closed 05/21/2024 06/20/2025 1 1 ING MIXTURE CARRIER * Diagnostic Imaging (Routine) - Closed Specialty Diagnoses / Procedures Referred By Contac t Referred To Contact Diagnoses Screening mammogram, encounter for Procedures Screening Mammogram Bilateral W Malcolm Screening Mammogram, Self [facility] Referral ID Status Reason Start Date Expiration Date Visits Re quested Visits Authorized [id number] Closed 05/21/2024 06/20/2025 1 1 ING MIXTURE CARRIER Reason for Visit * Diagnostic Imaging (Routine) - Closed Specialty Diagnoses / Procedures Referred By Contac t Referred To Contact Diagnoses Screening mammogram, encounter for Procedures Screening Mammogram Bilateral W Malcolm Screening Mammogram, Self [facility] Referral ID Status Reason Start Date Expiration Date Visits Re quested Visits Authorized [id number] Closed 05/21/2024 06/20/2025 1 1 Encounter Details Date Type Department Care Team (Latest Contact Info) Description 06/04/2024 7:43 AM PRIMING MIXTURE CARRIER - 06/04/2024 11:59 PM PRIMING MIXTURE CARRIER Hospital Encounter [facility] Breast [facility] [address] [place] [address] Screening mammogram, encounter for Discharge Disposition: Discharge to home or self care Social History Tobacco Use Types Packs/Day Years Used Date Smoking Tobacco: Never Passive Smoke Exposure: Never Smokeless Tobacco: Never Comments Unknown Sex and Gender Information Value Date Recorded Sex Assigned at Not on file Legal Sex Female 4:20 AM PRIMING MIXTURE CARRIER Gender Identity Not on file Sexual Orientation Not on file documented as of this encounter Medications at Time of Discharge cephalexin (KEFLEX) 500 mg capsule Take 1 capsule (500 mg total) by mouth 3 (three) times a day 21 capsule 03/07/2019 cholecalciferol (VITAMIN D-3) 2000 unit tablet Take 1 tablet (2,000 Units total) by mouth daily hydrocortisone 2.5 % cream Apply topically 2 (two) times a day Apply to itchy rash on R breast 30 g 06/26/2020 ibuprofen (ADVIL,MOTRIN) 200 mg tab/cap every 6 hours. ks-ifoyidg-ekd-i diamond fm-FA-vitK 18 mg iron-600 mcg-80 mcg tablet Take by mouth. omega-3 fatty acids-fish oil 360-1,200 mg capsule Take 1 tablet by mouth daily documented as of this encounter Discharge Disposition Disposition Code Departure Means Destination Discharge to home or self care documented in this encounter Plan of Treatment Not on file documented as of this encounter Procedures Procedure Name Priority Date/Time Associated Diagnosis Comments SCREENING MAMMOGRAM BILATERAL W MALCOLM Schedule Routine, Read Routine (OP Routine) 06/04/2024 8:02 AM PRIMING MIXTURE CARRIER Screening mammogram, encounter for documented in this encounter Results * Screening Mammogram Bilateral W Malcolm (06/04/2024 8:02 AM PRIMING MIXTURE CARRIER) Anatomical Region Laterality Modality Breast Bilateral Mammography Narrative 06/04/2024 11:53 AM PRIMING MIXTURE CARRIER Mammogram Technique: Bilateral Digital Breast Tomosynthesis, Bilateral C-view 2D Screening mammogram. Views obtained: bilateral craniocaudal; bilateral mediolateral oblique; and left craniocaudal exaggerated to axilla. Computer Aided Detection was performed. Mammogram Findings: The present examination has been compared to prior imaging studies performed at [facility] on 02/18/2021, 05/03/2022 and 05/10/2023. There [...] compared to prior imaging studies performed at [facility] on 02/18/2021, 05/03/2022 and 05/10/2023. There [...] Mammogram IMG MAMMO PROCEDURES Fi nal Result documented in this encounter Visit Diagnoses Diagnosis Screening mammogram, encounter for documented in this encounter Care Teams Change Control Analyst Relationship Specialty Start Date End Date Dennis Gonzalez MD PCP - General 08/18/16 documented as of this encounter
--- OUTSIDE RECORDS SUMMARY | 2024-06-06 11:32 | XMS_ITS | Referral Summary ---
Author Organization [facility] Address [address] [place] [address] Care Team Providers Care Press Hand Name Role Phone Dennis Gonzalez MD Primary Care Provider Encounters Date Type Department Care Team Description 06/04/2024 7:43 AM TRAFFIC OBSERVER - 06/04/2024 11:59 PM [facility] Hospital Encounter [facility] Advanced Medicine Breast Imaging [facility] ([facility]) [address] [place] [address] Screening mammogram, encounter for Discharge Disposition: Discharge to home or self care from Last 3 Months Allergies Active Allergy Reactions Criticality Noted Date Comments Iodinated Contrast Media Hives Medium 11/20/2015 Prednisone Vision changes Medium 12/27/2019 Sulfa (Sulfonamide Antibiotics) Nausea only Low Medications ibuprofen (ADVIL,MOTRIN) 200 mg tab/cap every 6 hours. Active xu-iruaecv-cni- iron fm-FA-vitK 18 mg iron-600 mcg-80 mcg [...] Neoplasm of connective and soft tissue 3 Immunizations Name Administration Dates Next Due Influenza, Trivalent, Cell C ulture-based MDCK, Preservative Free, Antibiotic Free, Intramuscular 02/13/2024 Pfizer SARS-CoV-2 Monovalent Vaccination (12+ Yrs) PURPLE 12/01/2020,11/04/2020 Social History Tobacco Use Types Packs/Day Years Used Date Smoking Tobacco: Never Passive Smoke Exposure: Never Smokeless Tobacco: Never Tobacco Cessation:Counseling Given: Not Answered Comments Unknown Sex and Gender Information Value Date Recorded Sex Assigned at Not on file Legal Sex Female 4:20 AM TRAFFIC OBSERVER Gender Identity Not on file Sexual Orientation [...] 01/17/2023 2:30 PM CDT Plan of Treatment Not on file Procedures Procedure Name Priority Date/Time Associated Diagnosis Comments SCREENING MAMMOGRAM BILATERAL W JAVIER Schedule Routine, Read Routine (OP Routine) 06/04/2024 8:02 AM TRAFFIC OBSERVER Screening mammogram, encounter for from Last 3 Months Results * Screening Mammogram Bilateral W Javier (06/04/2024 8:02 AM TRAFFIC OBSERVER) Anatomical Region Laterality Modality Breast Bilateral Mammography Narrative 06/04/2024 11:53 AM TRAFFIC OBSERVER Mammogram Technique: Bilateral Digital Breast Tomosynthesis, Bilateral C-view 2D Screening mammogram. Views obtained: bilateral craniocaudal; bilateral mediolateral oblique; and left craniocaudal exaggerated to axilla. Computer Aided Detection was performed. Mammogram Findings: The present examination has been compared to prior imaging studies performed at [facility] on 02/18/2021, 05/03/2022 and 05/10/2023. There are [...] compared to prior imaging studies performed at [facility] on 02/18/2021, 05/03/2022 and 05/10/2023. There are [...] nal Result from Last 3 Months Insurance [employer] [place] [facility] EM[employer]YEES [facility] [employer] [place] [facility] EM[employer]ES [facility] Care Teams Press Hand Relationship Specialty Start Date End Date Dennis Gonzalez MD PCP - General 08/18/16
--- OUTSIDE RECORDS SUMMARY | 2024-06-06 11:32 | XMS_ITS | Encounter Summary ---
Author Organization [facility] Address [address] [facility] [facility] [place] [address] Care Team Providers Care Studio Manager Name Role Phone Dennis Gonzalez MD Primary Care Provider [phone] Encounter Details Date Type Department Care Team (Late Contact Info) Description 06/13/2023 Lab Requisition [facility] - DermPath Lab [address] [facility], [place] [address] Patricia Crow, [address] [facility] [address] [place] [address] Social History Tobacco Use Types Packs/Day Years Used Date Smoking Tobacco: Never Assessed Sex and Gender Information Value Date Recorded Sex Assigned at Not on file Gender Identity Not on file Sexual Orientation Not on file documented as of this encounter Plan of Treatment Upcoming Encounters Date Type Department Care Team (Late Contact Info) Description 08/06/2024 3:00 PM CDT Office Visit [facility] Medical [facility] - ASSISTANT PROFESSOR OF CRIMINAL JUSTICE [address] [place] [address], [address] [place] [phone] Yeni Iqbal MD [address] [place] [phone] documented as of this encounter Procedures Procedure Name Priority Date/Time Associated Diagnosis Comments DERMATOPATHOLOGY Routine 06/13/2023 2:57 PM SOURCING ASSOCIATE documented in this encounter Results * DERMATOPATHOLOGY (06/13/2023 2:57 PM SOURCING ASSOCIATE) Case Report Dermatopathology Report Case: [id number] Authorizing Provider: Patricia Crow DO Collected: 06/13/2023 02:57 PM Ordering Location: [facility] Received: 06/14/2023 12:57 PM Pathologist: Quin Gardner MD Specimen: Skin, left lower back 1:58 PM SOURCING ASSOCIATE DERMATOPATHOLOGY LABORATORY Final Diagnosis Specimen A. SKIN, left lower back: BASAL CELL CARCINOMA, MICRONODULAR TYPE (C44.519) 1:58 PM SOURCING ASSOCIATE DERMATOPATHOLOGY LABORATORY Clinical History R/o BCC vs. IDN 1:58 PM SOURCING ASSOCIATE DERMATOPATHOLOGY LABORATORY Gross Description Specimen A: Received is one formalin filled container labeled with the patient's name and designated left lower back. The specimen consists of a shave biopsy measuring 5x4x1 mm. Jar 0. 1:58 PM [facility] DERMATOPATHOLOGY LABORATORY Microscopic Description Specimen A. SKIN, left lower back: Within the dermis there are small aggregates of basaloid cells with a high nuclear to cytoplasmic ratio and peripheral palisading of their nuclei. 1:58 PM SOURCING ASSOCIATE DERMATOPATHOLOGY LABORATORY Disclaimer An external and internal positive and negative controls are appropriate for the histochemical, immunohistochemical and immunofluorescence stain(s) in this case (if any), except where stated explicitly. The performance characteristics of the stain(s) cited in this report were developed and its performance characteristic determined by the Dermatopathology Laboratory at [facility], directed by Dr. Yang Peterson. These tests need not be, and therefore are not, approved by the [place] Food and Drug Administration. The tests are used for clinical purposes. Billing Codes Specimen Charges Stain Charges 45004 1 1:58 PM SOURCING ASSOCIATE DERMATOPATHOLOGY LABORATORY Embedded Images 1:58 PM SOURCING ASSOCIATE DERMATOPATHOLOGY LABORATORY Pathology/Cytolo gy TISSUE SPECIMEN FROM SKIN / Unknown 06/13/2023 2:57 PM SOURCING ASSOCIATE 06/14/2023 12:57 PM SOURCING ASSOCIATE Patricia Alejandra Crow DO LAB - PATHOLOGY/C YTOLOGY ORDERABLES DERMATOPATHOLOGY LABORATORY [facility] - Department of Dermatology [facility] [address] [place] [address], [address] [phone] documented in this encounter Visit Diagnoses Not on filedocumented in this encounter Care Teams Studio Manager Relationship Specialty Start Date End Date Dennis Gonzalez MD [address] [place] [phone] PCP - General Family Medicine 08/04/22 documented as of this encounter
[2024-06-06 11:41] VITALS: BP 139/78; PULSE 100; RESP 16; TEMP 36.5; O2SAT 97
--- OUTSIDE RECORDS SUMMARY | 2024-06-06 13:50 | XMS_ITS | Referral Summary ---
Author Organization [facility] Address [address] [facility] [place] [address] Care Team Providers Care Business Development Intern Name Role Phone Dennis Gonzalez MD Primary Care Provider [phone] Source Comments [facility],non-owned Affiliates and Associated Physician Practices is amultiple site organization consisting of ambulatory clinics and hospital sitesin [place], [place], [place] and [place]. This disclosure is being madepursuant to the Care Everywhere program and may not contain all information available regarding this patient. Last updated 18.[facility] Allergies Active Allergy Reactions Criticality Noted Date [...] (one) tablet by mouth once daily Active Graham-3 Fatty Acids (Fish Oil) 1200 MG Take [...] Description 08/06/2024 3:00 PM CDT Office Visit [facility] - CREDIT CARD CONTROL CLERK [address] [place] [address], [address] [place] [phone] Yeni Iqbal MD [address] [place] [phone] Procedures Procedure Name Priority Date/Time Associated [...] by [facility] ACCOUNT BILL Comment:Jt Pierson , Wind Turbine Performance Engineer (ASCP) Comment . [facility] ACCOUNT BILL Note [...] Resulting Agency Comment Lab Testing performed at: [address] [id number] Yeni Iqbal MD LAB - PATHOLOGY/C YTOLOGY ORDERABLES [facility] ACCOUNT BILL [id number] [place] [address] from Last 3 Months or Most Recently Relevant to Health Maintenance Care Teams Business Development Intern Relationship Specialty Start Date End Date Dennis Gonzalez MD [address] [place] [phone] PCP - General Family Medicine 08/04/22
--- OUTSIDE RECORDS SUMMARY | 2024-06-06 13:50 | XMS_ITS | Encounter Summary ---
Author Organization [facility] Address [address] [facility] [place] [address] Care Team Providers Care Grab Hooker Name Role Phone Dennis Gonzalez MD Primary Care Provider [phone] Encounter Details Date Type Department Care Team (Late Contact Info) Description 06/13/2023 Lab Requisition [facility] - DermPath Lab [address] [facility], [place] [address] Patricia Crow, [address] [facility] 3 [place] [address] Social History Tobacco Use Types Packs/Day Years Used Date Smoking Tobacco: Never Assessed Sex and Gender Information Value Date Recorded Sex Assigned at Not on file Gender Identity Not on file Sexual Orientation Not on file documented as of this encounter Plan of Treatment Upcoming Encounters Date Type Department Care Team (Late Contact Info) Description 08/06/2024 3:00 PM CDT Office Visit [facility] Medical [facility] - INSURANCE REPRESENTATIVE [address] [place] [address], [address] [place] [address] Yeni Iqbal MD [address] [place] [phone] documented as of this encounter Procedures Procedure Name Priority Date/Time Associated Diagnosis Comments DERMATOPATHOLOGY Routine 06/13/2023 2:57 PM SAFETY GROOVING MACHINE OPERATOR documented in this encounter Results * DERMATOPATHOLOGY (06/13/2023 2:57 PM SAFETY GROOVING MACHINE OPERATOR) Case Report Dermatopathology Report Case: [id number] Authorizing Provider: Patricia Crow DO Collected: 06/13/2023 02:57 PM Ordering Location: [facility] DermPath Lab Received: 06/14/2023 12:57 PM Pathologist: Quin Gardner MD Specimen: Skin, left lower back 1:58 PM SAFETY GROOVING MACHINE OPERATOR DERMATOPATHOLOGY LABORATORY Final Diagnosis Specimen A. SKIN, left lower back: BASAL CELL CARCINOMA, MICRONODULAR TYPE (C44.519) 1:58 PM SAFETY GROOVING MACHINE OPERATOR DERMATOPATHOLOGY LABORATORY Clinical History R/o BCC vs. IDN 1:58 PM SAFETY GROOVING MACHINE OPERATOR DERMATOPATHOLOGY LABORATORY Gross Description Specimen A: Received [...] peripheral palisading of their nuclei. 1:58 PM SAFETY GROOVING MACHINE OPERATOR DERMATOPATHOLOGY LABORATORY Disclaimer An external and internal positive and negative controls are appropriate for the histochemical, immunohistochemical and immunofluorescence stain(s) in this case (if any), except where stated explicitly. The performance characteristics of the stain(s) cited in this report were developed and its performance characteristic determined by the Dermatopathology Laboratory at [facility], directed by Dr. Yang Peterson. These tests need not be, and therefore are not, approved by the [place] Food and Drug Administration. The tests are used for clinical purposes. Billing Codes Specimen Charges Stain Charges 46938 1 1:58 PM SAFETY GROOVING MACHINE OPERATOR DERMATOPATHOLOGY LABORATORY Embedded Images 1:58 PM SAFETY GROOVING MACHINE OPERATOR DERMATOPATHOLOGY LABORATORY Pathology/Cytolo gy TISSUE SPECIMEN FROM SKIN / Unknown 06/13/2023 2:57 PM SAFETY GROOVING MACHINE OPERATOR 06/14/2023 12:57 PM SAFETY GROOVING MACHINE OPERATOR Patricia Alejandra Crow DO LAB - PATHOLOGY/C YTOLOGY ORDERABLES DERMATOPATHOLOGY LABORATORY [facility] - Department of Dermatology [facility] Medicine [address] [place] [address], [address] [phone] documented in this encounter Visit Diagnoses Not on filedocumented in this encounter Care Teams Grab Hooker Relationship Specialty Start Date End Date Dennis Gonzalez MD [address] [place] [address] PCP - General Family Medicine 08/04/22 documented as of this encounter
--- OUTSIDE RECORDS SUMMARY | 2024-06-06 13:50 | XMS_ITS | Patient Health Summary ---
Author Organization [facility] Address [address] [facility] [place] [address] Care Team Providers Care Retail Event Coordinator Name Role Phone Dennis Gonzalez MD Primary Care Provider [phone] Note from [facility],non-owned Affiliates and Associated Physician Practices is amultiple site organization consisting of ambulatory clinics and hospital sitesin [place], [place], [place] and [place]. This disclosure is being madepursuant to the Care Everywhere program and may not contain all information available regarding this patient. Last updated 18.[facility] Allergies * Contrast-Iodinated Agents For Ct/Other(Urticaria) -Medium [...] (one) tablet by mouth once daily * [place]-3 Fatty Acids (Fish Oil) 1200 MG Take [...] is included. Case Report Dermatopathology Report Case: [id number] Authorizing Provider: Patricia Crow DO Collected: 07/06/2023 11:31 AM Ordering Location: [facility] - Received: 07/06/2023 02:38 PM [...] of a non-oriented ellipse of skin measuring 02u33c2 mm. The epidermal surface is unremarkable. The [...] characteristic determined by the Dermatopathology Laboratory at [facility] [place], directed by Dr. Yang Peterson. These tests need not be, and therefore are not, approved by the [place] Food and Drug Administration. The tests are used for clinical purposes. Billing Codes Specimen Charges Stain Charges 37301 1 4 3:26 PM CDT DERMATOPATHOLOGY LABORATORY Embedded Images 4 3:26 PM CDT DERMATOPATHOLOGY LABORATORY Pathology/Cytolo gy TISSUE SPECIMEN FROM SKIN / Unknown 07/06/2023 11:31 AM CDT 07/06/2023 2:38 PM CDT Patricia Crow DO LAB - PATHOLOGY/C YTOLOGY ORDERABLES DERMATOPATHOLOGY LABORATORY [facility] - Department of Dermatology [address], [address] Floor [address] [phone] * TSH REFLEX FREE T4 (08/11/2022 9:19 AM CDT) TSH with Reflex FT4 1.80 mIU/L [facility] Comment: Reference Range > or = 20 Years 0.40-4.50 Ranges First trimester 0.26-2.66 Second trimester 0.55-2.73 Third trimester 0.43-2.91 REPORT COMMENT: FASTING:YES Test Performed at: [facility] [address] [address] [address] DALLIN KAPLAN MD Blood BLOOD SPECIMEN / Unknown 08/11/2022 9:19 AM CDT 08/11/2022 9:20 AM CDT Yeni Iqbal MD LAB - CHEMISTRY O RDERABLES [facility] [address] [place] [address] * PAP CERVICAL CANCER SCREEN APT (08/04/2022 4:32 PM CDT) Age Gdln ACOG Testing 30-65 [facility] ACCOUNT BILL PART OF UTERINE CERVIX / Unknown 08/04/2022 4:32 PM CDT 08/05/2022 Narrative [facility] ACCOUNT BILL - 08/10/2022 8:14 AM CDT Source.............Cervix No. of containers..01 ThinPrep Vial Resulting Agency Comment Lab Testing performed at: [address] [id number] Yeni Iqbal MD LAB - PATHOLOGY/C YTOLOGY ORDERABLES [facility] ACCOUNT BILL [address] [place] [address] * PAP IG LB +HPV APTIMA REFLEX 16[birth year]18/45 (08/04/2022 4:32 PM CDT) Diagnosis [facility] ACCOUNT BILL Comment:NEGATIVE FOR INTRAEP ITHELIAL LESION OR MALIGNANCY. Specimen Adequacy [facility] ACCOUNT BILL Comment: Satisfactory for evaluation. Endocervical and/or squamous metaplastic cells (endocervical component) are present. Clinician Provided ICD10 [facility] ACCOUNT BILL Comment: Z01.419 Z12.4 R23.2 Z83.49 Performed by [facility] ACCOUNT BILL Comment:Jt Pierson , Tube Builder (ASCP) Comment . [facility] ACCOUNT BILL Note [...] Resulting Agency Comment Lab Testing performed at: [address] [phone] Yeni Iqbal MD LAB - PATHOLOGY/C YTOLOGY ORDERABLES [facility] ACCOUNT BILL [address] [place] [address] Care Teams Retail Event Coordinator Relationship Specialty Start Date End Date Dennis Gonzalez MD [address] [place] [address] PCP - General Family Medicine 08/04/22
--- OUTSIDE RECORDS SUMMARY | 2024-06-06 13:50 | XMS_ITS | Referral Summary ---
Author Organization [facility] Address [address] [place] [address] Care Team Providers Care Digital Communications Manager Name Role Phone Dennis Gonzalez MD Primary Care Provider Encounters Date Type Department Care Team Description 06/04/2024 7:43 AM METAL LATHER - 06/04/2024 11:59 PM [facility] Hospital Encounter [facility] Advanced Medicine Breast Imaging [facility] Advanced Medicine ([facility]) [address] [place] [address] Screening mammogram, encounter for Discharge Disposition: Discharge to home or self care from Last 3 Months Allergies Active Allergy Reactions Criticality Noted Date Comments Iodinated Contrast Media Hives Medium 11/20/2015 Prednisone Vision changes Medium 12/27/2019 Sulfa (Sulfonamide Antibiotics) Nausea only Low Medications ibuprofen (ADVIL,MOTRIN) 200 mg tab/cap every 6 hours. Active jj-blbdnzw-jyz- iron fm-FA-vitK 18 mg iron-600 mcg-80 mcg [...] on file Legal Sex Female 4:20 AM METAL LATHER Gender Identity Not on file Sexual Orientation [...] Read Routine (OP Routine) 06/04/2024 8:02 AM METAL LATHER Screening mammogram, encounter for from Last 3 Months Results * Screening Mammogram Bilateral W Javier (06/04/2024 8:02 AM METAL LATHER) Anatomical Region Laterality Modality Breast Bilateral Mammography Narrative 06/04/2024 11:53 AM METAL LATHER Mammogram Technique: Bilateral Digital Breast Tomosynthesis, Bilateral C-view 2D Screening mammogram. Views obtained: bilateral craniocaudal; bilateral mediolateral oblique; and left craniocaudal exaggerated to axilla. Computer Aided Detection was performed. Mammogram Findings: The present examination has been compared to prior imaging studies performed at [facility] on 02/18/2021, 05/03/2022 and 05/10/2023. There [...] compared to prior imaging studies performed at [facility] on 02/18/2021, 05/03/2022 and 05/10/2023. There [...] Result from Last 3 Months Insurance [employer] [facility] [employer] [employer] [facility] H[employer]/PPO Address: [facility] [address] [place] [address] [facility] [employer] [facility] H[employer]/PPO Address: [address] [address] [place] [address] [employer] [facility] [employer] [employer]/PPO Address: [address] [address] [place] [address] [facility] Care Teams Digital Communications Manager Relationship Specialty Start Date End Date Dennis Gonzalez MD PCP - General 08/18/16
--- OUTSIDE RECORDS SUMMARY | 2024-06-06 13:50 | XMS_ITS | Encounter Summary ---
Author Organization [facility] Address [address] [facility] [place] [address] Care Team Providers Care Medical Sales Representative Name Role Phone Dennis Gonzalez MD Primary Care Provider [phone] Encounter Details Date Type Department Care Team (Late Contact Info) Description 07/06/2023 Lab Requisition [facility] - DermPath Lab [address] [facility], [place] [address] Patricia Crow, [address] [facility] 3 [place] [address] Social History Tobacco Use Types Packs/Day Years Used Date Smoking Tobacco: Never Assessed Sex and Gender Information Value Date Recorded Sex Assigned at Not on file Gender Identity Not on file Sexual Orientation Not on file documented as of this encounter Plan of Treatment Upcoming Encounters Date Type Department Care Team (Late Contact Info) Description 08/06/2024 3:00 PM CDT Office Visit [facility] Medical [facility] - LABORATORY CHIEF [address] [place] [place] [address], [address] [place] [phone] Yeni Iqbal MD [address] [place] [phone] documented as of this encounter Procedures Procedure Name Priority Date/Time Associated Diagnosis Comments DERMATOPATHOLOGY Routine 07/06/2023 11:3 1 AM CDT documented in this encounter Results * DERMATOPATHOLOGY (07/06/2023 11:31 AM CDT) Case Report Dermatopathology Report Case: [id number] Authorizing Provider: Patricia Crow DO Collected: 07/06/2023 11:31 AM Ordering Location: [facility] - Received: 07/06/2023 02:38 PM DermPath Lab [...] of a non-oriented ellipse of skin measuring 78y32v1 mm. The epidermal surface is unremarkable. The [...] characteristic determined by the Dermatopathology Laboratory at [facility], directed by Dr. Yang Peterson. These tests need not be, and therefore are not, approved by the [place] Food and Drug Administration. The tests are used for clinical purposes. Billing Codes Specimen Charges Stain Charges 36251 1 4 3:26 PM CDT DERMATOPATHOLOGY LABORATORY Embedded Images 4 3:26 PM CDT DERMATOPATHOLOGY LABORATORY Pathology/Cytolo gy TISSUE SPECIMEN FROM SKIN / Unknown 07/06/2023 11:31 AM CDT 07/06/2023 2:38 PM CDT Patricia Crow DO LAB - PATHOLOGY/C YTOLOGY ORDERABLES DERMATOPATHOLOGY LABORATORY [facility] - Department of Dermatology [address] [phone] documented in this encounter Visit Diagnoses Not on filedocumented in this encounter Care Teams Medical Sales Representative Relationship Specialty Start Date End Date Dennis Gonzalez MD [address] [place] [phone] PCP - General Family Medicine 08/04/22 documented as of this encounter
--- OUTSIDE RECORDS SUMMARY | 2024-06-06 13:50 | XMS_ITS | Clinical Summary ---
Author Organization [facility] Address [facility] [place] [address] Care Team Providers Care End Maker Name Role Phone Dennis Gonzalez MD Primary Care Provider [phone] Social History Tobacco Use Types Packs/Day Years [...] patient's age to complete this topic Insurance [facility] Care Teams End Maker Relationship Specialty Start Date End Date Dennis Gonzalez MD [address] [place] [address] PCP - General FAMILY PRACTICE 06/23/20
--- OUTSIDE RECORDS SUMMARY | 2024-06-06 13:50 | XMS_ITS | Clinical Summary ---
Author Organization [facility] Address [address] [facility] [place] [address] Care Team Providers Care Entry Level Programmer Name Role Phone Dennis Gonzalez MD Primary Care Provider [phone] Source Comments [facility],non-owned Affiliates and Associated Physician Practices is amultiple site organization consisting of ambulatory clinics and hospital sitesin [place], [place], [place]. This disclosure is being madepursuant to the Care Everywhere program and may not contain all information available regarding this patient. Last updated 18.[facility] Allergies Active Allergy Reactions Criticality Noted Date [...] (one) tablet by mouth once daily Active [place]-3 Fatty Acids (Fish Oil) 1200 MG Take [...] 08/06/2024 3:00 PM CDT Office Visit [facility] - LABEL PRINTER [address] [place] [address], [address] [place] [phone] Yeni Iqbal MD [address] [place] [address] [address] [place] [phone] Health Maintenance Due Date Last Done [...] by [facility] ACCOUNT BILL Comment:Jt Pierson , Air Intelligence Specialist (ASCP) Comment . [facility] ACCOUNT BILL Note [...] Agency Comment Lab Testing performed at: [facility] [address] [id number] Yeni Iqbal MD LAB - PATHOLOGY/C YTOLOGY ORDERABLES [facility] ACCOUNT BILL [address] [place] [address] from Last 3 Months or Most Recently Relevant to Health Maintenance Care Teams Entry Level Programmer Relationship Specialty Start Date End Date Dennis Gonzalez MD [address] [place] [address] PCP - General Family Medicine 08/04/22
--- OUTSIDE RECORDS SUMMARY | 2024-06-06 13:50 | XMS_ITS | Encounter Summary ---
Author Organization [facility] Address [address] [place] [address] Care Team Providers Care Diesel Powerplant Mechanic Helper Name Role Phone Dennis Gonzalez MD Primary Care Provider [phone] Reason for Referral * Diagnostic Imaging (Routine) - Closed Specialty Diagnoses / Procedures Referred By Contac t Referred To Contact Diagnoses Screening mammogram, encounter for Procedures Screening Mammogram Bilateral W Malcolm Screening Mammogram, Self [facility] Referral ID Status Reason Start Date Expiration Date Visits Re quested Visits Authorized [id number] Closed 05/21/2024 06/20/2025 1 1 CLEANING SUPERVISOR * Diagnostic Imaging (Routine) - Closed Specialty Diagnoses / Procedures Referred By Contac t Referred To Contact Diagnoses Screening mammogram, encounter for Procedures Screening Mammogram Bilateral W Malcolm Screening Mammogram, Self [facility] Referral ID Status Reason Start Date Expiration Date Visits Re quested Visits Authorized [id number] Closed 05/21/2024 06/20/2025 1 1 CLEANING SUPERVISOR Reason for Visit * Diagnostic Imaging (Routine) - Closed Specialty Diagnoses / Procedures Referred By Contac t Referred To Contact Diagnoses Screening mammogram, encounter for Procedures Screening Mammogram Bilateral W Malcolm Screening Mammogram, Self [facility] Referral ID Status Reason Start Date Expiration Date Visits Re quested Visits Authorized [id number] Closed 05/21/2024 06/20/2025 1 1 Encounter Details Date Type Department Care Team (Latest Contact Info) Description 06/04/2024 7:43 AM TANK CLEANING SUPERVISOR - 06/04/2024 11:59 PM TANK CLEANING SUPERVISOR Hospital Encounter [facility] [address] [place] [address] Screening mammogram, encounter for Discharge Disposition: Discharge to home or self care Social History Tobacco Use Types Packs/Day Years Used Date Smoking Tobacco: Never Passive Smoke Exposure: Never Smokeless Tobacco: Never Comments Unknown Sex and Gender Information Value Date Recorded Sex Assigned at Not on file Legal Sex Female 4:20 AM TANK CLEANING SUPERVISOR Gender Identity Not on file Sexual Orientation [...] (ADVIL,MOTRIN) 200 mg tab/cap every 6 hours. js-wbreiae-poz-i diamond fm-FA-vitK 18 mg iron-600 mcg-80 mcg [...] Read Routine (OP Routine) 06/04/2024 8:02 AM TANK CLEANING SUPERVISOR Screening mammogram, encounter for documented in this encounter Results * Screening Mammogram Bilateral W Malcolm (06/04/2024 8:02 AM TANK CLEANING SUPERVISOR) Anatomical Region Laterality Modality Breast Bilateral Mammography Narrative 06/04/2024 11:53 AM TANK CLEANING SUPERVISOR Mammogram Technique: Bilateral Digital Breast Tomosynthesis, Bilateral C-view 2D Screening mammogram. Views obtained: bilateral craniocaudal; bilateral mediolateral oblique; and left craniocaudal exaggerated to axilla. Computer Aided Detection was performed. Mammogram Findings: The present examination has been compared to prior imaging studies performed at [facility] on 02/18/2021, 05/03/2022 and 05/10/2023. There are [...] compared to prior imaging studies performed at [facility] on 02/18/2021, 05/03/2022 and 05/10/2023. There are [...] for documented in this encounter Care Teams Diesel Powerplant Mechanic Helper Relationship Specialty Start Date End Date Dennis Gonzalez MD PCP - General 08/18/16 documented as of this encounter
--- OUTSIDE RECORDS SUMMARY | 2024-06-06 13:51 | XMS_ITS | Clinical Summary ---
Author Organization [facility] Address [address] [place] [address] Care Team Providers Care Blast Hole Driller Name Role Phone Dennis Gonzalez MD Primary Care Provider Allergies Active Allergy Reactions Criticality Noted Date Comments Iodinated Contrast Media Hives Medium 11/20/2015 Prednisone Vision changes Medium 12/27/2019 Sulfa (Sulfonamide Antibiotics) Nausea only Low Medications ibuprofen (ADVIL,MOTRIN) 200 mg tab/cap every 6 hours. Active zi-qrlwhwc-syb- iron fm-FA-vitK 18 mg iron-600 mcg-80 mcg [...] Department Care Team Description 06/04/2024 7:43 AM INSTRUCTIONAL TECHNOLOGIST - 06/04/2024 11:59 PM INSTRUCTIONAL TECHNOLOGIST Hospital Encounter [facility] Advanced Medicine Breast Imaging [facility] ([facility]) [address] [place] [phone] Screening mammogram, encounter for Discharge Disposition: Discharge [...] on file Legal Sex Female 4:20 AM INSTRUCTIONAL TECHNOLOGIST Gender Identity Not on file Sexual Orientation [...] Read Routine (OP Routine) 06/04/2024 8:02 AM INSTRUCTIONAL TECHNOLOGIST Screening mammogram, encounter for from Last 3 Months Results * Screening Mammogram Bilateral W Malcolm (06/04/2024 8:02 AM INSTRUCTIONAL TECHNOLOGIST) Anatomical Region Laterality Modality Breast Bilateral Mammography Narrative 06/04/2024 11:53 AM INSTRUCTIONAL TECHNOLOGIST Mammogram Technique: Bilateral Digital Breast Tomosynthesis, Bilateral C-view 2D Screening mammogram. Views obtained: bilateral craniocaudal; bilateral mediolateral oblique; and left craniocaudal exaggerated to axilla. Computer Aided Detection was performed. Mammogram Findings: The present examination has been compared to prior imaging studies performed at [facility] on 02/18/2021, 05/03/2022 and 05/10/2023. There [...] compared to prior imaging studies performed at [facility] on 02/18/2021, 05/03/2022 and 05/10/2023. There [...] nal Result from Last 3 Months Insurance [employer] [facility] [employer] [facility] Care Teams Blast Hole Driller Relationship Specialty Start Date End Date Dennis Gonzalez MD PCP - General 08/18/16
--- NOTE | 2024-06-06 13:55 | ED_ITS ---
HPI - General Adult General Chief complaint: Abdominal Pain Stated complaint: suspected diverticulitis flare Time Seen by Provider: 06/06/24 13:40 History of Present Illness HPI narrative: Patient is a 54-year-old female who presents to the ER with lower abdominal pain. Symptoms began 2 days ago. Associated with constipation initially but now she is having normal bowel movements after taking Metamucil. Aggravated by movement and occasionally occurs without provocation. History of perforated diverticulitis couple years ago. Related Data Home Medications ?Medication ?Instructions ?Recorded ?Confirmed ?Last Taken ?Type cholecalciferol (vitamin D3) 10 10 mcg PO DAILY 09/14/22 11/07/22 11/04/22 History mcg (400 unit) capsule omega-3 fatty acids 1,000 mg 1,000 mg PO DAILY 09/14/22 11/07/22 11/04/22 History capsule lactobacillus combination no.9 4 4,000 mmu cells PO DAILY 10/04/22 11/07/22 Unknown History billion cell capsule (Adult 50 Plus Probiotic) Allergies Allergy/AdvReac Type Severity Reaction Status Date / Time iohexol (From contrast - CT, Allergy Hives Verified 06/06/24 11:26 X-RAY) prednisone Allergy Nausea and Verified 06/06/24 11:26 Vomiting Sulfa (Sulfonamide Allergy Nausea Verified 06/06/24 11:26 Antibiotics) Review of Systems 2 Review of Systems: All systems reviewed & are unremarkable except as noted in HPI and below Constitutional: Constitutional: Reports no additional constitutional complaints ENT: Reports system reviewed and no additional complaints, except as documented Cardiovascular: Cardiovascular: Reports no additional cardiovascular complaints Respiratory: Respiratory: Reports no additional respiratory complaints Gastrointestinal: Gastrointestinal: Reports no additional gastrointestinal complaints [facility] Past Medical History Medical History (Updated 06/06/24 @ 14:36 by Kyrie Hui MD) Overweight (BMI 25.0-29.9) Diverticulitis Vitamin D deficiency Surgical History Surgical History History of lumpectomy of left breast Benign History of colonoscopy History of tonsillectomy Family History Family History Mother Diverticulitis Social History Social History Smoking status: Never smoker Alcohol intake: never Drinks per week: 2 Substance use: never Substance use type: does not use Lack of Transportation: No Lack of Food: Sometimes True Current Housing: I Have Housing Concerned About Future Housing: No Difficulty Paying Gas/Electric Bills: No Difficulty Paying for Meds: No Currently Unemployed: No Education: Associate Degree Difficulty w/ Childcare or Family Care: No Living arrangements: with family Spiritual care concerns: No Exam 2 Narrative: GENERAL: Well-appearing, well-nourished, and in no acute distress. HEAD: Normocephalic, atraumatic. CHEST: Clear to auscultation. No respiratory distress. HEART: Regular rate and rhythm. Normal peripheral pulses. ABDOMEN: Soft, tender palpation bilateral lower quadrants with guarding, nondistended. EXTREMITIES: Normal range of motion. No edema. SKIN: Warm, dry, no rash. NEURO: Alert and oriented x3. PSYCH: Normal mood and affect. Course Vital Signs Vital signs: Vital Signs Temperature 97.7 F 06/06/24 11:41 Pulse Rate 100 06/06/24 11:41 Respiratory Rate 16 06/06/24 11:41 Blood Pressure 139/78 06/06/24 11:41 Pulse Oximetry 97 06/06/24 11:41 Oxygen Delivery Room Air 06/06/24 11:41 Temperature 97.7 F 06/06/24 11:41 Pulse Rate 101 H 06/06/24 14:27 Respiratory Rate 16 06/06/24 14:27 Blood Pressure 124/75 06/06/24 14:27 Pulse Oximetry 96 06/06/24 14:27 Oxygen Delivery Room Air 06/06/24 11:41 Medical Decision Making MDM Narrative Medical decision making narrative: -Course: Declined morphine, received Tylenol. -Co-morbidities complicating care: Diverticulitis -Social determinants of health: None -External Chart Review: None -Hx from independent Sources: Patient -Independent interpretation of studies: Uncomplicated diverticulitis on CT scan. Mild leukocytosis of 14.7. Normal electrolytes and liver function studies. -Interventions: CT abdomen pelvis, Tylenol. -Shared decision making / Disposition: Discharge home on oral antibiotics. Follow-up with PCP. Vital Signs Vital Signs: Vital Signs Temperature 97.7 F 06/06/24 11:41 Pulse Rate 100 06/06/24 11:41 Respiratory Rate 16 06/06/24 11:41 Blood Pressure 139/78 06/06/24 11:41 Pulse Oximetry 97 06/06/24 11:41 Oxygen Delivery Room Air 06/06/24 11:41 Temperature 97.7 F 06/06/24 11:41 Pulse Rate 101 H 06/06/24 14:27 Respiratory Rate 16 06/06/24 14:27 Blood Pressure 124/75 06/06/24 14:27 Pulse Oximetry 96 06/06/24 14:27 Oxygen Delivery Room Air 06/06/24 11:41 Lab Data 06/06/24 13:58 06/06/24 13:58 Labs: Lab Results 06/06/24 Range/Units 13:58 WBC 14.7 H (4.5-10.0) K/mm3 RBC 4.24 (4.2-5.4) M/mm3 Hgb 13.7 (12.0-15.0) g/dL Hct 40.3 (37.0-47.0) % MCV 95.0 (80-100) fl MCH 32.3 (26-34) pg MCHC 34.0 (32-36) g/dl RDW 12.5 (11.5-14.5) % Plt Count 285 (150-375) k/mm3 MPV 10.5 H (7.4-10.4) fl Immature Gran % (Auto) 0.3 (0-0.5) % Neut % (Auto) 87.2 H (45.5-73.1) % Lymph % (Auto) 7.1 L (18.3-44.2) % [place] % (Auto) 5.0 (2.6-8.5) % Eos % (Auto) 0.1 (0-4.4) % Baso % (Auto) 0.3 (0.2-1.2) % Lymph # (Auto) 1.04 (0.9-3.2) K/mm3 [place] # (Auto) 0.7 H (0.1-0.6) K/mm3 Eos # (Auto) 0.0 (0-0.3) K/mm3 Baso # (Auto) 0.0 (0.0-0.1) K/mm3 Abs Immat Gran (auto) 0.05 H (0.00-0.031) K/mm3 Absolute Neuts (auto) 12.8 H (1.3-6.7) K/mm3 Absolute Nucleated RBC 0.000 (0.0-0.012) K/mm3 Nucleated RBC % 0.0 (0.0-0.2) % Sodium 138 (137-145) mmol/L Potassium 3.9 (3.4-5.0) mmol/L Chloride 104 (98-107) mmol/L Carbon Dioxide 24 (22-30) mmol/L Anion Gap 10 (4-12) mmol/L BUN 11 (7-17) mg/dL Creatinine 0.71 (0.7-1.0) mg/dL Estim Creat Clear Calc 87 ml/min Estimated GFR > 60 (59 - ) Glucose 109 (65-110) mg/dL Calcium 10.0 (8.4-10.2) mg/dL Total Bilirubin 1.0 (0.2-1.3) mg/dL AST 26 (14-36) U/L ALT 31 (6-35) U/L Alkaline Phosphatase 109 (38-126) U/L Total Protein 8.0 (6.3-8.2) g/dL Albumin 4.4 (3.5-5.1) g/dL Lipase 30 (23-300) U/L Imaging Data Radiologist's impression: ITS Impressions Abdomen/Pelvis CT 06/06/24 14:06 IMPRESSION: 1. Radiographically uncomplicated sigmoid diverticulitis. Discharge Plan Discharge Clinical Impression: Diverticulitis Patient Disposition: Home, Self-Care Condition: Stable Instructions: Antibiotic Form, Diverticulitis (ED) Additional Instructions: Return to the emergency department if you develop severe abdominal pain, severe nausea and vomiting to the point where you are unable to keep down fluids, if you develop chest pain or difficulty breathing, blood in your stool, dizziness or fainting, or if you develop any other new or concerning symptoms as these could be signs of more serious medical illness. Try to stay well hydrated. Patient Language: Mohawk Prescriptions: New amoxicillin-pot clavulanate 875-125 mg tablet 1 tablet PO Q12H Qty: 20 0RF No Action cholecalciferol (vitamin D3) 10 mcg (400 unit) capsule 10 mcg PO DAILY omega-3 fatty acids 1,000 mg capsule 1,000 mg PO DAILY Adult 50 Plus Probiotic 4 billion cell capsule 4,000 mmu cells PO DAILY Rx Instructions: administer with a meal amoxicillin-pot clavulanate 875-125 mg tablet 1 tablet PO BID Qty: 14 0RF metronidazole 500 mg tablet 500 mg PO Q8H Qty: 21 0RF omeprazole 20 mg capsule,delayed release(DR/EC) 20 mg PO .QAM Qty: 30 6RF Follow-up/Referrals: Irma,EJ Vick [Primary Care Provider] - 1 Week
[2024-06-06 14:05] LABS: Basophils Percent Auto 0.3 % (0.2-1.2); Eosinophils Percent Auto 0.1 % (0-4.4); Hematocrit 40.3 % (37.0-47.0); Hemoglobin 13.7 g/dL (12.0-15.0); Immature Granulocyte Absolute 0.05 K/mm3 (0.00-0.031); Immature Granulocyte Percent A 0.3 % (0-0.5); Lymphocytes Absolute Auto 1.04 K/mm3 (0.9-3.2); Lymphocytes Percent Auto 7.1 % (18.3-44.2); Mean Corpuscular Hemoglobin 32.3 pg (26-34); Mean Platelet Volume 10.5 fl (7.4-10.4); Monocytes Absolute Auto 0.7 K/mm3 (0.1-0.6); Neutrophils Absolute Auto 12.8 K/mm3 (1.3-6.7); Neutrophils Percent Auto 87.2 % (45.5-73.1); Platelet Count Result 285 k/mm3 (150-375); Red Blood Count 4.24 M/mm3 (4.2-5.4); Red Cell Distribution Width 12.5 % (11.5-14.5); White Blood Count 14.7 K/mm3 (4.5-10.0)
[2024-06-06 14:16] LABS: Alanine Aminotransferase 31 U/L (6-35); Albumin Level 4.4 g/dL (3.5-5.1); Alkaline Phosphatase 109 U/L (38-126); Anion Gap 10 mmol/L (4-12); Aspartate Amino Transferase 26 U/L (14-36); Blood Urea Nitrogen 11 mg/dL (7-17); Carbon Dioxide 24 mmol/L (22-30); Chloride 104 mmol/L (98-107); Estimated CRCL calculation 87 ml/min; Estimated Glomerular Filt Rate > 60; Glucose 109 mg/dL (65-110); Lipase 30 U/L (23-300); Potassium 3.9 mmol/L (3.4-5.0); Sodium 138 mmol/L (137-145)
--- NOTE | 2024-06-06 14:22 | PC.NURSE ---
pt refusing morphine at this time. Dr. Hui aware. Verbal order for 650mg acetaminophen.
[2024-06-06] MEDS: ACETAMINOPHEN 325 MG TABLET 650 MG PO (14:25)
[2024-06-06 14:27] VITALS: BP 124/75; PULSE 101; RESP 16; O2SAT 96
== END 2024-06-06 15:04 | disposition home or self-care (01) ==
PROVIDERS: Emergency Medicine; Emergency Provider Emergency Medicine; PCP Physician Assistant
DX: K57.32 Diverticulitis of large intestine without perforation or abscess without bleeding (principal); E55.9 Vitamin D deficiency, unspecified; E66.3 Overweight; Z68.30 Body mass index [BMI] 30.0-30.9, adult
CPT/HCPCS: 36415; 74176; 80053; 83690; 85025; 96374; 99284; A9270